=== PATIENT | female | born 1955 | race Caucasian/White ===

== ENCOUNTER 2018-05-23 15:58 | Emergency (ER) | payer OTHER ==
[2018-05-23] MEDS ORDERED: MECLIZINE HCL 12.5 MG TAB ONE (16:39)
[2018-05-23] MEDS ORDERED: FOLIC ACID 1 MG TABLET ONE (16:40)
[2018-05-23] MEDS ORDERED: ONDANSETRON 4 MG/2 ML VIAL ONE (16:40)
[2018-05-23 16:47] LABS: Urine Blood 1+ (NEG); Urine Glucose NEGATIVE (NEG); Urine Protein NEGATIVE (NEG)
[2018-05-23 17:00] LABS: Absolute Lymphocytes (CBC) 2.6 K/uL (0.7-4.9); Absolute Monocytes 0.5 K/uL (0.1-1.3); Absolute Neutrophil 4.5 K/uL (1.8-8.0); Basophils % 1.5 % (0-1.3); Eosinophils % 2.4 % (0-4.4); Hematocrit 49.7 % (36.0-45.0); MCH 29.5 pg (27.0-35.0); MCV 89.8 fL (80-100); MPV 9.1 fL (7.6-11.3); Monocytes % 5.9 % (3.3-12.3); RBC Red Blood Cell Count 5.53 M/uL (3.86-4.86)
[2018-05-23 17:08] LABS: Protime INR 0.92
--- NOTE | 2018-05-23 17:12 | RAD REPORT ---
EXAM DESCRIPTION: RAD - Chest Single View - 05/23/2018 4:54 pm CLINICAL HISTORY: Cough, weakness, dizziness COMPARISON: None. TECHNIQUE: AP portable chest image was obtained 1652 hours . FINDINGS: Lungs are clear. Heart and vasculature are normal. No measurable pleural effusion and no p neumothorax. No gross bony abnormality seen. No acute aortic findings suspected. IMPRESSION: No acute cardiopulmonary process.
[2018-05-23 17:21] LABS: ALT/SGPT 22 U/L (12-78); AST/SGOT 16 U/L (15-37); Alkaline Phosphatase 74 U/L (45-117); BUN Blood Urea Nitrogen 12 mg/dL (7-18); Bicarbonate 30 mmol/L (21-32); Bilirubin Direct 0.2 mg/dL (0-0.2); Bilirubin Total 0.4 mg/dL (0.2-1.0); Glucose Level 101 mg/dL (74-106); Magnesium 2.4 mg/dL (1.8-2.4); NT PRO-BNP 33 pg/mL (<125); Potassium 3.7 mmol/L (3.5-5.1); Protein, Total 7.7 g/dL (6.4-8.2); Sodium Level 142 mmol/L (136-145); Troponin (Emerg Dept Use Only) < 0.02 ng/mL (0.0-0.045)
[2018-05-23] MEDS ORDERED: ASPIRIN 81 MG CHEWABLE TABLET ONE (17:26)
--- NOTE | 2018-05-23 17:49 | RAD REPORT ---
EXAM DESCRIPTION: USCarotid Artery Gyeekrfue78/3/2018 5:29 pm CLINICAL HISTORY: Syncope COMPARISON: None FINDINGS: The velocity of the right internal carotid artery equals 70 cm/sec. The right ICA/CCA rati o 1.3 The velocity of the left internal carotid artery equals 64 cm/sec. The left ICA/CCA ratio 1.1 Minimal plaque is present within the carotid arteries. The vertebral arteries demonstrate antegrade flow IMPRESSION: Minimal plaque within the carotid arteries without evidence of a hemodynamically signifi cant stenosis
--- NOTE | 2018-05-23 18:24 | RAD REPORT ---
EXAM DESCRIPTION: MRI - Brain Wo Cont - 05/23/2018 6:02 pm CLINICAL HISTORY: Dizziness COMPARISON: 05/22/2018 TECHNIQUE: Axial, sagittal, and coronal magnetic images of the brain were obtained. Contrast was not requested FINDINGS: Mild patchy signal is present within the brainstem, basal ganglia, periventricular deep wh ite matter probably secondary to ischemic changes secondary to small vessel disease. Diffusion-weighted/ADC mapping does not reveal evidence of acute infarction. The ventricles are normal caliber. An extra-axial fluid collection is not present The sinuses and mastoids are clear. IMPRESSION: No acute abnormality is displayed
--- NOTE | 2018-05-23 18:37 | ER ---
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 Transition of care: patient was not received from another setting of care. Onset of symptoms was May 23, 2018. Risk Assessment: Do you want to hurt yourself or someone else? Patient reports no desire to harm self or others. Initial Sepsis Screen: Does the patient meet any 2 criteria? No. Patient's initial sepsis screen is negative. Does the patient have a suspected source of infection? No. Patient's initial sepsis screen is negative. Care prior to arrival: None. 16:02 Method Of Arrival: Ambulatory 16:02 Acuity: ESTEPHANIA 3 hj Triage Assessment: 16:07 Headache History: Denies prior headaches. General: Appears in no apparent distress. hj uncomfortable, Behavior is calm, cooperative, appropriate for age. Pain: Complains of pain in head Pain currently is 1 out of 10 on a pain scale. Pain began 1 day ago. Also complains of. Neuro: Level of Consciousness is awake, alert, obeys commands, Oriented to person, place, time, situation, Appropriate for age. Historical: - Allergies: 16:06 TETRACYCLINES; hj - Home Meds: 16:06 Diovan 12.5 mg Oral tab once daily [Active]; pantoprazole 40 mg oral TbEC 1 tab once hj daily [Active]; aspirin 81 mg Oral TbEC 1 tab once daily [Active]; Flonase 50 mcg/actuation Nasal spsn 1 spray 2 times per day [Active]; - PMHx: 16:06 Hypertension; hj - PSHx: 16:06 Heart stents; Hysterectomy; Knee surgery; hj - Immunization history:: Adult Immunizations up to date. - Social history:: Smoking status: Patient uses tobacco products, smokes one pack cigarettes per day. Patient uses alcohol, weekly. - Ebola Screening: : Patient negative for fever greater than or equal to 101.5 degrees Fahrenheit, and additional compatible Ebola Virus Disease symptoms Patient denies exposure to infectious person Patient denies travel to an Ebola-affected area in the 21 days before illness onset. - Family history:: not pertinent. Screenin:06 Abuse screen: Denies threats or abuse. Denies injuries from another. Nutritional hj screening: No deficits noted. Tuberculosis screening: No symptoms or risk factors identified. Fall Risk None identified. Assessment: 16:40 General: Appears in no apparent distress. comfortable, slender, well groomed, well tl3 developed, well nourished, Behavior is calm, cooperative, appropriate for age. Pain: Denies pain. Neuro: Level of Consciousness is awake, alert, obeys commands, Oriented to person, place, time, situation, Appropriate for age. Neuro: Reports dizziness, since Monday, intermittently dizzy, seen by PCP yesterday and CT and Blood results were negative. Cardiovascular: Patient's skin is warm and dry. Respiratory: Airway is patent Respiratory effort is even, unlabored, Respiratory pattern is regular, symmetrical. GI: No signs and/or symptoms were reported involving the gastrointestinal system. : No signs and/or symptoms were reported regarding the genitourinary system. EENT: No signs and/or symptoms were reported regarding the EENT system. Derm: No signs and/or symptoms reported regarding the dermatologic system. Musculoskeletal: No signs and/or symptoms reported regarding the musculoskeletal system. 18:09 Reassessment: Patient appears in no apparent distress at this time. No changes from tl3 previously documented assessment. Patient and/or family updated on plan of care and expected duration. Pain level reassessed. Patient is alert, oriented x 3, equal unlabored respirations, skin warm/dry/pink. pt returned from MRI. 18:57 Reassessment: Patient appears in no apparent distress at this time. No changes from tl3 previously documented assessment. Patient and/or family updated on plan of care and expected duration. Pain level reassessed. Patient is alert, oriented x 3, equal unlabored respirations, skin warm/dry/pink. Vital Signs: 16:08 BP 122 / 79; Pulse 76; Resp 18; Temp 97.5(TE); Pulse Ox 98% on R/A; Weight 65.77 kg; hj Height 5 ft. 1 in. (154.94 cm); Pain 2/10; 18:09 BP 142 / 95; Pulse 64; Resp 18; Pulse Ox 99% on R/A; tl3 18:57 BP 121 / 80; Pulse 71; Resp 16; Pulse Ox 98% on R/A; tl3 16:08 Body Mass Index 27.40 (65.77 kg, 154.94 cm) ED Course: 16:02 Patient arrived in ED. mr 16:04 Triage completed. hj 16:07 Arm band placed on left wrist. hj 16:08 Patient has correct armband on for positive identification. Placed in gown. Bed in low hj position. Call light in reach. Side rails up X 1. 16:18 Rishabh Hoang MD is Attending Physician. [facility] 16:22 Isabel Bergman RN is Primary Nurse. tl3 16:50 XRAY Chest (1 view) Sent. tl3 16:53 X-ray completed. Portable x-ray completed in exam room. Patient tolerated procedure az well. 16:55 XRAY Chest (1 view) In Process Unspecified. EDMS 16:56 No provider procedures requiring assistance completed. Inserted saline lock: 20 gauge tl3 in left antecubital area, using aseptic technique. Blood collected. 17:17 EKG done, by welding technician. reviewed by Rishabh Hoang MD. sm3 17:29 Carotid Artery Bilateral In Process Unspecified. EDMS 17:53 Patient moved to MRI via wheelchair. em2 17:57 Brain Wo Cont In Process Unspecified. EDMS 18:01 MRI completed. Patient tolerated well. Patient moved back from MRI. em2 18:09 Door closed. Lights dimmed. Warm blanket given. tl3 18:36 Remigio Khalil MD is Referral Physician. sherlyn 18:57 IV discontinued, intact, bleeding controlled, No redness/swelling at site. Pressure tl3 dressing applied. Administered Medications: 16:48 Drug: Meclizine 50 mg Route: PO; tl3 18:11 Follow up: Response: No adverse reaction tl3 16:48 Drug: Zofran 4 mg Route: IVP; Infused Over: 2 mins; Site: left wrist; tl3 18:11 Follow up: Response: No adverse reaction tl3 16:51 Drug: foLIC Acid 1 mg Route: IVPB; Site: left wrist; tl3 18:11 Follow up: Response: No adverse reaction tl3 18:59 Follow up: IV Status: Completed infusion tl3 17:32 Drug: Aspirin 81 mg Route: PO; tl3 18:11 Follow up: Response: No adverse reaction tl3 Outcome: 18:36 Discharge ordered by MD. plata 18:57 Discharged to home ambulatory. tl3 18:57 Condition: stable 18:57 Discharge instructions given to patient, Instructed on discharge instructions, follow up and referral plans. medication usage, Demonstrated understanding of instructions, follow-up care, medications, Prescriptions given X 2. 19:00 Patient left the ED. tl3 Signatures: Dispatcher [employer] EDMS Rishabh Hoang MD MD cha Rivera, Catrina mr Bhakta Kendrick em2 Jonah Currie RN RN hj Lowrey, Tammy, RN RN 3 Karina Bhakta 3 Gissel Mckinley ne Corrections: (The following items were deleted from the chart) 16:09 16:08 Pulse 76bpm; Resp 18bpm; Pulse Ox 98% RA; Temp 97.5F Temporal; 65.77 kg; Height 5 hj ft. 1 in.; BMI: 27.4; Pain 2/10; hj
--- NOTE | 2018-05-23 18:39 | EDPHYS ---
Physician Documentation [facility] Name: Denice Gastelum Age: 62 yrs Sex: Female : 1955 Arrival Date: 05/23/2018 Time: 16:02 Bed 25 Private MD: ED Physician Rishabh Hoang HPI: 05/23 16:34 This 62 yrs old Female presents to ER via Ambulatory with complaints of sherlyn Dizziness, Headache. 16:35 This 62 yrs old Female presents to ER via Ambulatory with complaints of sherlyn Dizziness, Headache. 16:34 The patient presents with dizziness, sense of spinning. sherlyn Historical: - Allergies: 16:06 TETRACYCLINES; hj - Home Meds: 16:06 Diovan 12.5 mg Oral tab once daily [Active]; pantoprazole 40 mg oral TbEC 1 tab once hj daily [Active]; aspirin 81 mg Oral TbEC 1 tab once daily [Active]; Flonase 50 mcg/actuation Nasal spsn 1 spray 2 times per day [Active]; - PMHx: 16:06 Hypertension; hj - PSHx: 16:06 Heart stents; Hysterectomy; Knee surgery; hj - Immunization history:: Adult Immunizations up to date. - Social history:: Smoking status: Patient uses tobacco products, smokes one pack cigarettes per day. Patient uses alcohol, weekly. - Ebola Screening: : Patient negative for fever greater than or equal to 101.5 degrees Fahrenheit, and additional compatible Ebola Virus Disease symptoms Patient denies exposure to infectious person Patient denies travel to an Ebola-affected area in the 21 days before illness onset. - Family history:: not pertinent. ROS: 16:35 Constitutional: Negative for fever, chills, and weight loss, Eyes: Negative for injury, sherlyn pain, redness, and discharge, ENT: Negative for injury, pain, and discharge, Neck: Negative for injury, pain, and swelling, Cardiovascular: Negative for chest pain, palpitations, and edema, Respiratory: Negative for shortness of breath, cough, wheezing, and pleuritic chest pain, Abdomen/GI: Negative for abdominal pain, nausea, vomiting, diarrhea, and constipation, Back: Negative for injury and pain, : Negative for injury, bleeding, discharge, and swelling, MS/Extremity: Negative for injury and deformity, Skin: Negative for injury, rash, and discoloration, Psych: Negative for depression, anxiety, suicide ideation, homicidal ideation, and hallucinations, Allergy/Immunology: Negative for hives, rash, and allergies, Endocrine: Negative for neck swelling, polydipsia, polyuria, polyphagia, and marked weight changes, Hematologic/Lymphatic: Negative for swollen nodes, abnormal bleeding, and unusual bruising. 16:35 Neuro: Positive for dizziness, headache. Exam: 16:35 Constitutional: This is a well developed, well nourished patient who is awake, alert, sherlyn and in no acute distress. Head/Face: Normocephalic, atraumatic. ENT: Nares patent. No nasal discharge, no septal abnormalities noted. Tympanic membranes are normal and external auditory canals are clear. Oropharynx with no redness, swelling, or masses, exudates, or evidence of obstruction, uvula midline. Mucous membranes moist. Neck: Trachea midline, no thyromegaly or masses palpated, and no cervical lymphadenopathy. Supple, full range of motion without nuchal rigidity, or vertebral point tenderness. No Meningismus. Chest/axilla: Normal chest wall appearance and motion. Nontender with no deformity. No lesions are appreciated. Cardiovascular: Regular rate and rhythm with a normal S1 and S2. No gallops, murmurs, or rubs. Normal PMI, no JVD. No pulse deficits. Respiratory: Lungs have equal breath sounds bilaterally, clear to auscultation and percussion. No rales, rhonchi or wheezes noted. No increased work of breathing, no retractions or nasal flaring. Abdomen/GI: Soft, non-tender, with normal bowel sounds. No distension or tympany. No guarding or rebound. No evidence of tenderness throughout. Back: No spinal tenderness. No costovertebral tenderness. Full range of motion. Female : Normal external genitalia. Skin: Warm, dry with normal turgor. Normal color with no rashes, no lesions, and no evidence of cellulitis. MS/ Extremity: Pulses equal, no cyanosis. Neurovascular intact. Full, normal range of motion. Neuro: Awake and alert, GCS 15, oriented to person, place, time, and situation. Cranial nerves II-XII grossly intact. Motor strength 5/5 in all extremities. Sensory grossly intact. Cerebellar exam normal. Normal gait. Psych: Awake, alert, with orientation to person, place and time. Behavior, mood, and affect are within normal limits. 16:35 Eyes: Nystagmus: nystagmus with fast component noted, bilaterally. Vital Signs: 16:08 BP 122 / 79; Pulse 76; Resp 18; Temp 97.5(TE); Pulse Ox 98% on R/A; Weight 65.77 kg; hj Height 5 ft. 1 in. (154.94 cm); Pain 2/10; 18:09 BP 142 / 95; Pulse 64; Resp 18; Pulse Ox 99% on R/A; tl3 18:57 BP 121 / 80; Pulse 71; Resp 16; Pulse Ox 98% on R/A; tl3 16:08 Body Mass Index 27.40 (65.77 kg, 154.94 cm) hj MDM: 16:18 Patient medically screened. [facility] 16:36 Data reviewed: vital signs, nurses notes, lab test result(s), EKG, radiologic studies, [facility] CT scan, MRI, plain films, ultrasound. 05/23 16:30 Order name: Basic Metabolic Panel; Complete Time: 17:23 [facility] 05/23 16:30 Order name: CBC with Diff; Complete Time: 17:23 [facility] 05/23 16:30 Order name: LFT's; Complete Time: 17:23 [facility] 05/23 16:30 Order name: Magnesium; Complete Time: 17:23 [facility] 05/23 16:30 Order name: NT PRO-BNP; Complete Time: 17:23 [facility] 05/23 16:30 Order name: PT-INR; Complete Time: 17:23 [facility] 05/23 16:30 Order name: Troponin (emerg Dept Use Only); Complete Time: 17:23 [facility] 05/23 16:30 Order name: XRAY Chest (1 view); Complete Time: 17:23 [facility] 05/23 16:30 Order name: US Carotid Artery Bilateral; Complete Time: 18:35 sherlyn 05/23 16:30 Order name: Urine Culture [facility] 05/23 16:32 Order name: Urine Dipstick--Ancillary (enter results); Complete Time: 17:09 05/23 17:52 Order name: Brain Wo Cont; Complete Time: 18:35 EDMS 05/23 16:30 Order name: EKG; Complete Time: 16:31 sherlyn 05/23 16:30 Order name: Cardiac monitoring; Complete Time: 16:50 sherlyn 05/23 16:30 Order name: EKG - Nurse/Tech; Complete Time: 16:50 [facility] 05/23 16:30 Order name: IV Saline Lock; Complete Time: 16:50 [facility] 05/23 16:30 Order name: Labs collected and sent; Complete Time: 16:50 [facility] 05/23 16:30 Order name: O2 Per Protocol; Complete Time: 16:50 [facility] 05/23 16:30 Order name: O2 Sat Monitoring; Complete Time: 16:50 [facility] Administered Medications: 16:48 Drug: Meclizine 50 mg Route: PO; tl3 18:11 Follow up: Response: No adverse reaction tl3 16:48 Drug: Zofran 4 mg Route: IVP; Infused Over: 2 mins; Site: left wrist; tl3 18:11 Follow up: Response: No adverse reaction tl3 16:51 Drug: foLIC Acid 1 mg Route: IVPB; Site: left wrist; tl3 18:11 Follow up: Response: No adverse reaction tl3 18:59 Follow up: IV Status: Completed infusion tl3 17:32 Drug: Aspirin 81 mg Route: PO; tl3 18:11 Follow up: Response: No adverse reaction tl3 Disposition: 05/23/18 18:36 Discharged to Home. 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 - Condition is Stable. - Discharge Instructions: Benign Positional Vertigo, Dizziness, Hypertension, Steps to Quit Smoking, Smoking Hazards, Stroke Prevention, Hypertension, [id number], How to Take Your Blood Pressure, [id number], Aspirin and Your Heart, Dizziness, [id number], Managing Your Hypertension. - Prescriptions for Meclizine 25 mg Oral Tablet - take 1 tablet by ORAL route every 8 hours As needed; 30 tablet. Zofran 4 mg Oral Tablet - take 1 tablet by ORAL route every 12 hours As needed; 20 tablet. - Medication Reconciliation Form, Thank You Letter, Antibiotic Education, Prescription Opioid Use form. - Follow up: Private Physician; When: 2 - 3 days; Reason: Recheck today's complaints, Continuance of care, Re-evaluation by your physician. Follow up: Remigio Khalil; When: 2 - 3 days; Reason: Recheck today's complaints, Re-evaluation by your physician. - Problem is new. - Symptoms have improved. Signatures: Dispatcher [employer] [facility] Rishabh Hoang MD MD cha Joaquin, Henry RN RN Isabel Portillo RN RN tl3 Corrections: (The following items were deleted from the chart) 17:52 16:31 MR STROKE PROTOCOL+MRI.RAD.BRZ ordered. [facility] 19:00 18:36 05/23/2018 18:36 Discharged to Home. 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 Condition is Stable. Discharge Instructions: Benign Positional Vertigo, Dizziness, Hypertension, Steps to Quit Smoking, Smoking Hazards, Stroke Prevention, Hypertension, [id number], How to Take Your Blood Pressure, Zgtt-[id number], Aspirin and Your Heart, Dizziness, Khox-hl-Uecm, Managing Your Hypertension. Prescriptions for Meclizine 25 mg Oral Tablet - take 1 tablet by ORAL route every 8 hours As needed; 30 tablet, Zofran 4 mg Oral Tablet - take 1 tablet by ORAL route every 12 hours As needed; 20 tablet. and Forms are Medication Reconciliation Form, Thank You Letter, Antibiotic Education, Prescription Opioid Use. Follow up: Private Physician; When: 2 - 3 days; Reason: Recheck today's complaints, Continuance of care, Re-evaluation by your physician. Follow up: Remigio Khalil; When: 2 - 3 days; Reason: Recheck today's complaints, Re-evaluation by your physician. Problem is new. Symptoms have improved. sherlyn
[2018-05-23 19:25] VITALS: TEMP 98.5
[2018-05-23 19:26] VITALS: BP 133/87; O2SAT 99
--- NOTE | 2018-05-23 23:08 | EKG ---
Test Date: 2018-05-23 Test Time: 17:10:29 Plastic Surgery Manager: EMILIO MEASUREMENT RESULTS: Intervals: Rate: 65 DC: 140 QRSD: 82 QT: 378 QTc: 393 [place]: P: 69 DC: 140 QRS: 62 T: 59 INTERPRETIVE STATEMENTS: Normal sinus rhythm Nonspecific T wave abnormality Abnormal ECG Compared to ECG 12/26/1996 08:51:00 T-wave abnormality now present Electronically Signed On 05-23-18 23:07:30 CDT by Dashawn Lou
== END 2018-05-23 19:00 | disposition home or self-care (01) ==
LOC: ER 15:58
DX: H82.9 Vertiginous syndromes in diseases classified elsewhere, unspecified ear (principal); I10 Essential (primary) hypertension; Z72.0 Tobacco use; Z71.6 Tobacco abuse counseling; Z95.828 Presence of other vascular implants and grafts; Z79.82 Long term (current) use of aspirin; Z88.1 Allergy status to other antibiotic agents
CPT/HCPCS: 36415; 70551; 71045; 80048; 80076; 81003; 83735; 83880; 84484; 85025; 85610; 87086; 87088; 93005; 93880; J2405

== ENCOUNTER 2018-06-01 22:29 | Emergency (ER) | payer OTHER ==
--- NOTE | 2018-06-02 00:17 | ER ---
Nurse's Notes [facility] Name: Denice Gastelum Age: 62 yrs Sex: Female : 1955 Arrival Date: 06/01/2018 Time: 22:31 Bed 2 Private MD: Diagnosis: Vagal Syncope Presentation: 06/01 22:31 Presenting complaint: Patient states: "pt was at a bar with friends when she got very jd3 dizzy and nauseous. pt reports drinking a few drinks. when we arrived on scene pt's blood pressure was 78/50, but by the time we got her here her blood pressure was back up at her normal level.". Transition of care: patient was not received from another setting of care. Onset of symptoms was June 01, 2018. Risk Assessment: Do you want to hurt yourself or someone else? Patient reports no desire to harm self or others. Initial Sepsis Screen: Does the patient meet any 2 criteria? No. Patient's initial sepsis screen is negative. Does the patient have a suspected source of infection? No. Patient's initial sepsis screen is negative. Care prior to arrival: Glucose check: 108. 22:31 Method Of Arrival: EMS: [facility] jd3 22:31 Acuity: ESTEPHANIA 3 jd3 Historical: - Allergies: 22:38 TETRACYCLINES; jd3 - Home Meds: 22:38 aspirin 81 mg Oral TbEC 1 tab once daily [Active]; Diovan 12.5 mg Oral tab once daily jd3 [Active]; Flonase 50 mcg/actuation Nasal spsn 1 spray 2 times per day [Active]; pantoprazole 40 mg Oral TbEC 1 tab once daily [Active]; 22:39 Vitamin D Oral [Active]; jd3 - PMHx: 22:38 Hypertension; cervical cancer; jd3 - PSHx: 22:38 Hysterectomy; Heart stents; jd3 22:39 Knee surgery; jd3 - Immunization history:: Pneumococcal vaccine is not up to date, Flu vaccine is not up to date. - Social history:: Smoking status: Patient uses tobacco products. - Ebola Screening: : Patient negative for fever greater than or equal to 101.5 degrees Fahrenheit, and additional compatible Ebola Virus Disease symptoms. Screenin:45 Abuse screen: Denies threats or abuse. Nutritional screening: No deficits noted. jd3 Tuberculosis screening: No symptoms or risk factors identified. Fall Risk Ambulatory Aid- None/Bed Rest/Nurse Assist (0 pts). Gait- Normal/Bed Rest/Wheelchair (0 pts) Mental Status- Oriented to own ability (0 pts). Total Hernandez Fall Scale indicates No Risk (0-24 pts). Assessment: 22:40 Reassessment: Patient states feeling better. General: Appears in no apparent distress. jd3 comfortable, Behavior is calm, cooperative, appropriate for age. Pain: Denies pain. Neuro: Level of Consciousness is awake, alert, obeys commands, Oriented to person, place, time, situation, Appropriate for age Moves all extremities. Full function Gait is steady, Speech is normal, Facial symmetry appears normal, Pupils are PERRLA, denies vertigo and nausea at this time. reports symptoms have decreased prior to arrival.. Denies dizziness at this time.. Cardiovascular: Denies chest pain, Capillary refill < 3 seconds Patient's skin is warm and dry. Respiratory: Airway is patent Respiratory effort is even, unlabored, Respiratory pattern is regular, symmetrical, Denies shortness of breath. GI: Abdomen is round non-distended, Patient currently denies nausea or vomiting at this time. : No signs and/or symptoms were reported regarding the genitourinary system. EENT: No signs and/or symptoms were reported regarding the EENT system. Derm: Skin is intact, Skin is dry, Skin is normal, Skin temperature is warm. Musculoskeletal: Circulation, motion, and sensation intact. Range of motion: intact in all extremities. 23:19 Reassessment: Patient appears in no apparent distress at this time. Patient and/or jd3 family updated on plan of care and expected duration. Pain level reassessed. Patient is alert, oriented x 3, equal unlabored respirations, skin warm/dry/pink. awaiting provider to see pt. 06/02 00:07 Reassessment: Patient appears in no apparent distress at this time. Patient and/or jd3 family updated on plan of care and expected duration. Pain level reassessed. Patient is alert, oriented x 3, equal unlabored respirations, skin warm/dry/pink. Patient denies pain at this time. 00:14 Reassessment: pt ambulated with even and steady gait to front nurses station and back j to room . pt denied any vertigo or unsteady feeling while walking. Vital Signs: 06/01 22:39 BP 95 / 70; Pulse 60; Resp 16 S; Temp 97.4(O); Pulse Ox 97% on R/A; Weight 65.77 kg jd3 (R); Height 5 ft. 1 in. (154.94 cm) (R); Pain 0/10; 23:19 BP 107 / 85; Pulse 62; Resp 16 S; Pulse Ox 99% on R/A; jd3 06/02 00:05 BP 116 / 77 Supine; Pulse 64; Resp 17 S; Pulse Ox 99% on R/A; jd3 00:05 BP 117 / 74 Standing; Pulse 59; Resp 16 S; Pulse Ox 99% on R/A; jd3 00:33 BP 116 / 77; Pulse 69; Resp 16; Pulse Ox 99% on R/A; Pain 0/10; ak1 06/01 22:39 Body Mass Index 27.40 (65.77 kg, 154.94 cm) jd3 ED Course: 06/01 22:31 Patient arrived in ED. jd3 22:36 Triage completed. jd3 22:40 Arm band placed on. jd3 22:45 Patient has correct armband on for positive identification. Bed in low position. Call j light in reach. Side rails up X 1. 22:58 Pantera Rodgers RN is Primary Nurse. jd3 23:24 Adolfo Tadeo MD is Attending Physician. ri 06/02 00:16 Remigio Khalil MD is Referral Physician. ri 00:33 No provider procedures requiring assistance completed. Patient did not have IV access ak1 during this emergency room visit. Administered Medications: No medications were administered Outcome: 00:16 Discharge ordered by . ri 00:34 Discharged to home ambulatory, with family, pt with steady gait at time of discharge. ak1 00:34 Condition: stable 00:34 Discharge instructions given to patient, family, Instructed on discharge instructions, follow up and referral plans. Demonstrated understanding of instructions, follow-up care. 00:34 Patient left the ED. ak1 Signatures: Luna Blake RN RN ak1 Adolfo Tadeo MD MD wa Davies, Jonathon, RN RN jd3 Corrections: (The following items were deleted from the chart) 06/01 22:59 22:59 Reassessment: Patient appears in no apparent distress at this time. No changes jd3 from previously documented assessment. Patient and/or family updated on plan of care and expected duration. Pain level reassessed. Patient is alert, oriented x 3, equal unlabored respirations, skin warm/dry/pink. jd3 06/02 00:06 00:05 BP 117 / 74; Pulse 59bpm; Resp 16bpm; Spontaneous; Pulse Ox 99% RA; jd3 jd3 00:06 00:05 BP 116 / 77; Pulse 64bpm; Resp 17bpm; Spontaneous; Pulse Ox 99% RA; jd3 jd3
--- NOTE | 2018-06-02 00:17 | EDPHYS ---
Physician Documentation [facility] Name: Denice Gastelum Age: 62 yrs Sex: Female : 1955 Arrival Date: 06/01/2018 Time: 22:31 Bed 2 Private MD: ED Physician Adolfo Tadeo HPI: 06/02 00:55 This 62 yrs old Female presents to ER via EMS with complaints of syncope. wa 00:55 The patient has experienced syncope, collapsed. Onset: The symptoms/episode wa began/occurred just prior to arrival. Duration: This was a single episode, that lasted an unknown period of time. Context: the episode(s) was witnessed, by a bystander, occurred at a bar or nightclub, occurred while the patient was sitting, Just prior to the episode the patient experienced dizziness, nausea, vomiting, per pt, has been having episodes of room spinning x 2 weeks. recently seen here and had a negative MRI and carotid doppler studies. states usually occurs associated with bitemporal BINGHAM, then proceed to dizziness w/ room spinning and unsteady on the feet as a result. today had had 2 ETOH drinks at a high school [employer]union [employer] when she became dizzy and passed out. Vomited. became clammy. per EMS, noted with low BP at their arrival. states feels completely better now and symptoms have resolved. Associated injury: The patient did not suffer any apparent associated injury. Associated signs and symptoms: Pertinent positives: diaphoresis, dizziness, Pertinent negatives: abdominal pain, agitation, ataxia, blurred vision, chest pain, confusion. Current symptoms: Currently, the patient is not experiencing any symptoms. The patient has experienced similar episodes in the past, several times. The patient has been recently seen by a physician: worked up here in ED as noted above. Historical: - Allergies: 06/01 22:38 TETRACYCLINES; jd3 - Home Meds: 22:38 aspirin 81 mg Oral TbEC 1 tab once daily [Active]; Diovan 12.5 mg Oral tab once daily jd3 [Active]; Flonase 50 mcg/actuation Nasal spsn 1 spray 2 times per day [Active]; pantoprazole 40 mg Oral TbEC 1 tab once daily [Active]; 22:39 Vitamin D Oral [Active]; jd3 - PMHx: 22:38 Hypertension; cervical cancer; jd3 - PSHx: 22:38 Hysterectomy; Heart stents; jd3 22:39 Knee surgery; jd3 - Immunization history:: Pneumococcal vaccine is not up to date, Flu vaccine is not up to date. - Social history:: Smoking status: Patient uses tobacco products. - Ebola Screening: : Patient negative for fever greater than or equal to 101.5 degrees Fahrenheit, and additional compatible Ebola Virus Disease symptoms. ROS: 06/02 01:02 Constitutional: Negative for fever, chills, and weight loss, Eyes: Negative for injury, wa pain, redness, and discharge, ENT: Negative for injury, pain, and discharge, Neck: Negative for injury, pain, and swelling, Cardiovascular: Negative for chest pain, palpitations, and edema, Respiratory: Negative for shortness of breath, cough, wheezing, and pleuritic chest pain, Abdomen/GI: Negative for abdominal pain, nausea, vomiting, diarrhea, and constipation, Back: Negative for injury and pain, : Negative for injury, bleeding, discharge, and swelling, MS/Extremity: Negative for injury and deformity, Skin: Negative for injury, rash, and discoloration, Psych: Negative for depression, anxiety, suicide ideation, homicidal ideation, and hallucinations. Neuro: Positive for dizziness, syncope, Negative for tinnitus, visual changes, weakness. All other systems are negative. Exam: 01:03 Constitutional: This is a well developed, well nourished patient who is awake, alert, wa and in no acute distress. Head/Face: Normocephalic, atraumatic. Eyes: Pupils equal round and reactive to light, extra-ocular motions intact. Lids and lashes normal. Conjunctiva and sclera are non-icteric and not injected. Cornea within normal limits. Periorbital areas with no swelling, redness, or edema. ENT: Nares patent. No nasal discharge, no septal abnormalities noted. Tympanic membranes are normal and external auditory canals are clear. Oropharynx with no redness, swelling, or masses, exudates, or evidence of obstruction, uvula midline. Mucous membranes moist. Neck: Trachea midline, no thyromegaly or masses palpated, and no cervical lymphadenopathy. Supple, full range of motion without nuchal rigidity, or vertebral point tenderness. No Meningismus. Chest/axilla: Normal chest wall appearance and motion. Nontender with no deformity. No lesions are appreciated. Cardiovascular: Regular rate and rhythm with a normal S1 and S2. No gallops, murmurs, or rubs. Normal PMI, no JVD. No pulse deficits. Respiratory: Lungs have equal breath sounds bilaterally, clear to auscultation and percussion. No rales, rhonchi or wheezes noted. No increased work of breathing, no retractions or nasal flaring. Abdomen/GI: Soft, non-tender, with normal bowel sounds. No distension or tympany. No guarding or rebound. No evidence of tenderness throughout. Back: No spinal tenderness. No costovertebral tenderness. Full range of motion. Skin: Warm, dry with normal turgor. Normal color with no rashes, no lesions, and no evidence of cellulitis. MS/ Extremity: Pulses equal, no cyanosis. Neurovascular intact. Full, normal range of motion. Psych: Awake, alert, with orientation to person, place and time. Behavior, mood, and affect are within normal limits. 01:03 Neuro: Orientation: is normal, Mentation: is normal, Memory: is normal, Cranial nerves: grossly normal, Cerebellar function: normal finger to nose testing, heel to smith testing is normal, able to perform alternating rapid hand movements, Motor: is normal. Vital Signs: 06/01 22:39 BP 95 / 70; Pulse 60; Resp 16 S; Temp 97.4(O); Pulse Ox 97% on R/A; Weight 65.77 kg jd3 (R); Height 5 ft. 1 in. (154.94 cm) (R); Pain 0/10; 23:19 BP 107 / 85; Pulse 62; Resp 16 S; Pulse Ox 99% on R/A; jd3 06/02 00:05 BP 116 / 77 Supine; Pulse 64; Resp 17 S; Pulse Ox 99% on R/A; jd3 00:05 BP 117 / 74 Standing; Pulse 59; Resp 16 S; Pulse Ox 99% on R/A; jd3 00:33 BP 116 / 77; Pulse 69; Resp 16; Pulse Ox 99% on R/A; Pain 0/10; ak1 06/01 22:39 Body Mass Index 27.40 (65.77 kg, 154.94 cm) [facility] MDM: 06/01 23:24 Patient medically screened. sd 06/02 01:04 Differential Diagnosis: cardiac arrhythmia, idiopathic syncope, vasovagal episode, will wa check orthostasis. will monitor. will check EKG. Data reviewed: vital signs, nurses notes. Test interpretation: by ED physician or midlevel provider: EKG: HR 59. sinus lucy. negative orthostasis. Special discussion: pt recently worked up with MRI, labs, and EKG. has appt to f/u with neurology. will d/c with close f/u. 06/01 23:47 Order name: EKG; Complete Time: 23:48 jd3 06/01 23:43 Order name: Cardiac monitoring; Complete Time: 00:05 sd 06/01 23:43 Order name: Orthostatics; Complete Time: 00:05 sd 06/01 23:43 Order name: EKG - Nurse/Tech; Complete Time: 00:05 sd Administered Medications: No medications were administered Disposition: 06/02/18 00:16 Discharged to Home. Impression: Vagal Syncope. - Condition is Stable. - Discharge Instructions: Vasovagal Syncope, Adult. - Medication Reconciliation Form, Thank You Letter, Antibiotic Education, Prescription Opioid Use form. - Follow up: Remigio Khalil MD; When: 2 - 3 days; Reason: Recheck today's complaints. - Problem is new. - Symptoms have improved. - Notes: follow up with the neurologist as discussed. do not drink alcohol until you have been evaluated and cleared and your symptoms have completely resolved. Return immediately for any worsening concerns you may have Signatures: Luna Blake RN RN ak1 Adolfo Tadeo MD MD sd Pantera Rodgers RN RN jd3 Corrections: (The following items were deleted from the chart) 00:34 00:16 06/02/2018 00:16 Discharged to Home. Impression: Vagal Syncope. Condition is ak1 Stable. Forms are Medication Reconciliation Form, Thank You Letter, Antibiotic Education, Prescription Opioid Use. Follow up: Remigio Khalil; When: 2 - 3 days; Reason: Recheck today's complaints. Problem is new. Symptoms have improved. wa
[2018-06-02 00:47] VITALS: TEMP 97.4
[2018-06-02 00:48] VITALS: O2SAT 99
[2018-06-02 00:51] VITALS: BP 116/77
--- NOTE | 2018-06-04 10:15 | EKG ---
Test Date: 2018-06-01 Test Time: 23:58:35 Svp: ENDER MEASUREMENT RESULTS: Intervals: Rate: 59 DE: 146 QRSD: 82 QT: 408 QTc: 403 [place]: P: 73 DE: 146 QRS: 68 T: 70 INTERPRETIVE STATEMENTS: Sinus bradycardia T wave abnormality, non specific Abnormal ECG Compared to ECG 05/23/2018 17:10:29 Possible ischemia now present Sinus rhythm no longer present T-wave abnormality still present Electronically Signed On 06-04-18 10:14:36 CDT by Dashawn Lou
== END 2018-06-02 00:34 | disposition home or self-care (01) ==
LOC: ER 22:29
DX: R55 Syncope and collapse (principal); I10 Essential (primary) hypertension; Z88.3 Allergy status to other anti-infective agents
CPT/HCPCS: 93005; 99283

== ENCOUNTER 2019-10-05 08:55 | Inpatient (IN) | payer OTHER ==
[2019-10-05] MEDS ORDERED: ASPIRIN 81 MG CHEWABLE TABLET ONE (09:41)
[2019-10-05 09:43] LABS: Absolute Lymphocytes (CBC) 1.9 K/uL (0.7-4.9); Basophils % 1.3 % (0-1.3); Hematocrit 45.7 % (36.0-45.0); Lymphocytes % 29.6 % (15.3-44.8); MPV 9.2 fL (7.6-11.3); RBC Red Blood Cell Count 5.29 M/uL (3.86-4.86)
[2019-10-05 09:46] LABS: Protime INR 0.89
--- NOTE | 2019-10-05 10:16 | RAD REPORT ---
EXAM DESCRIPTION: [facility] Single View10/05/2019 9:34 am CLINICAL HISTORY: Chest pain COMPARISON: 2017 FINDINGS: The lungs appear clear of acute infiltrate. The heart is normal size IMPRESSION: No acute abnormalities displayed
[2019-10-05 10:43] LABS: ALT/SGPT 18 U/L (12-78); AST/SGOT 13 U/L (15-37); Albumin 4.1 g/dL (3.4-5.0); Alkaline Phosphatase 86 U/L (45-117); BUN Blood Urea Nitrogen 13 mg/dL (7-18); Bicarbonate 25 mmol/L (21-32); Bilirubin Direct 0.1 mg/dL (0-0.2); Bilirubin Total 0.3 mg/dL (0.2-1.0); Glucose Level 98 mg/dL (74-106); Magnesium 2.2 mg/dL (1.8-2.4); NT PRO-BNP 30 pg/mL (<125); Potassium 4.1 mmol/L (3.5-5.1); Protein, Total 7.6 g/dL (6.4-8.2); Sodium Level 142 mmol/L (136-145); Troponin (Emerg Dept Use Only) < 0.02 ng/mL (0.0-0.045)
--- NOTE | 2019-10-05 13:19 | ER ---
Nurse's Notes [facility] Name: Denice Gastelum Age: 63 yrs Sex: Female : 1955 Arrival Date: 10/05/2019 Time: 08:57 Bed 5 Private MD: Diagnosis: Non-ST elevation (NSTEMI) myocardial infarction Presentation: 10/05 09:00 Presenting complaint: Patient states: Mid-sternal burning chest pain, radiates to jaw, jl7 reports SOB, started at 0600. Has GERD, feels different, denies N/V/D. Transition of care: patient was not received from another setting of care. Onset of symptoms was October 05, 2019 at 06:00. Risk Assessment: Do you want to hurt yourself or someone else? Patient reports no desire to harm self or others. Initial Sepsis Screen: Does the patient meet any 2 criteria? No. Patient's initial sepsis screen is negative. Does the patient have a suspected source of infection? No. Patient's initial sepsis screen is negative. Care prior to arrival: Medication(s) given: ASA, 81 mg, x 1. 09:14 Method Of Arrival: Ambulatory [facility] 09:14 Acuity: ESTEPHANIA 3 jl7 Triage Assessment: 09:17 General: Appears in no apparent distress. uncomfortable, Behavior is calm, cooperative, jl7 appropriate for age. Pain: Complains of pain in mid-sternal area Pain radiates to jaw Pain currently is 0 out of 10 on a pain scale. at worst was 5 out of 10 on a pain scale. Quality of pain is described as burning, Pain began 3 hours ago. Is intermittent. Neuro: Level of Consciousness is awake, alert, obeys commands, Oriented to person, place, time, situation. Cardiovascular: Patient's skin is warm and dry. Respiratory: Airway is patent Respiratory effort is even, unlabored, Respiratory pattern is regular, symmetrical. Derm: Skin is pink, warm \T\ dry. Historical: - Allergies: 09:17 TETRACYCLINES; jl7 - Home Meds: 09:17 Diovan 12.5 mg Oral tab once daily [Active]; aspirin 81 mg Oral TbEC 1 tab once daily jl7 [Active]; Flonase 50 mcg/actuation Nasal spsn 1 spray 2 times per day [Active]; pantoprazole 40 mg Oral TbEC 1 tab once daily [Active]; Vitamin D Oral [Active]; - PMHx: 09:17 cervical cancer; Hypertension; GERD; jl7 - PSHx: 09:17 Hysterectomy; Heart stents; Knee surgery; jl7 - Immunization history:: Adult Immunizations unknown. - Coronavirus screen:: The patient has NOT traveled to [place] in the past 14 days. Proceed with normal triage process as indicated. - Social history:: Smoking status: Patient reports the use of cigarette tobacco products, smokes one pack cigarettes per day. Patient uses alcohol, on a daily basis. street drugs, marijuana, occasionally . - Ebola Screening: : No symptoms or risks identified at this time. Screenin:39 Abuse screen: Denies threats or abuse. Denies injuries from another. Nutritional jl7 screening: No deficits noted. Tuberculosis screening: No symptoms or risk factors identified. Fall Risk IV access (20 points). Total Hernandez Fall Scale indicates No Risk (0-24 pts). Assessment: 10:20 Reassessment: Patient appears in no apparent distress at this time. No changes from jl7 previously documented assessment. Patient and/or family updated on plan of care and expected duration. Pain level reassessed. Patient is alert, oriented x 3, equal unlabored respirations, skin warm/dry/pink. 11:20 Reassessment: Patient appears in no apparent distress at this time. No changes from jl7 previously documented assessment. Patient and/or family updated on plan of care and expected duration. Pain level reassessed. Patient is alert, oriented x 3, equal unlabored respirations, skin warm/dry/pink. 12:23 Reassessment: Patient appears in no apparent distress at this time. No changes from jl7 previously documented assessment. Patient and/or family updated on plan of care and expected duration. Pain level reassessed. Patient is alert, oriented x 3, equal unlabored respirations, skin warm/dry/pink. Vital Signs: 09:17 BP 165 / 87; Pulse 77; Resp 16 S; Temp 98.1(O); Pulse Ox 97% on R/A; Pain 0/10; jl7 10:20 BP 156 / 76; Pulse 68; Resp 16 S; Pulse Ox 98% on R/A; jl7 11:00 BP 149 / 75; Pulse 67; Resp 16 S; Pulse Ox 100% on R/A; jl7 11:30 BP 129 / 71; Pulse 66; Resp 16 S; Pulse Ox 99% on R/A; Pain 0/10; jl7 12:24 BP 156 / 85; Pulse 66; Resp 16 S; Pulse Ox 99% on R/A; jl7 13:12 BP 159 / 87; Pulse 69; Resp 16 S; Pulse Ox 99% on R/A; jl7 13:18 Weight 62.6 kg (R); jl7 14:00 BP 152 / 94; Pulse 76; Resp 18; Pulse Ox 99% on R/A; em 15:00 BP 132 / 79; Pulse 79; Resp 16; Pulse Ox 99% on R/A; em ED Course: 08:57 Patient arrived in ED. rg4 09:00 Tyshawn Richmond RN is Primary Nurse. jl7 09:02 Binh Ambrose PA is PHCP. jr8 09:02 Rishabh Hoang MD is Attending Physician. jr8 09:16 Triage completed. jl7 09:16 EKG done, by ED staff, reviewed by Binh BARROW. jb1 09:17 Arm band placed on right wrist. jl7 09:19 Arm band placed on right wrist. ss 09:30 Initial lab(s) drawn, by me, sent to lab. Inserted saline lock: 22 gauge in left hand, jl7 using aseptic technique. Blood collected. Patient maintains SpO2 saturation greater than 95% on room air. 09:30 Patient has correct armband on for positive identification. Placed in gown. Bed in low jl7 position. Call light in reach. Side rails up X 1. 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 Pulse ox on. NIBP on. Warm blanket given. 12:21 Repeat lab(s) drawn. by me, sent to lab. sg 13:06 Esha Ramires MD is Hospitalizing Provider. jr8 15:14 No provider procedures requiring assistance completed. Patient admitted, IV remains in em place. 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 jr8 15:14 Admitted to Tele accompanied by tech, via wheelchair, with chart, Report called to [phone] em 15:14 Condition: good 15:14 Instructed on the need for admit, Demonstrated understanding of instructions. 15:19 Patient left the ED. em Signatures: Micheal Oconnor jb1 Soto Aldridge, RN RN Carroll Law RN RN em Brenda Diaz RN RN Binh Ambrose PA PA jr8 Shelley Jordan rg4 Tyshawn Richmond RN RN jl7 Corrections: (The following items were deleted from the chart) 10:21 09:19 BP 138 / 77; Pulse 73bpm; Resp 19bpm; Pulse Ox 98% RA; Temp 97.6F Temporal; 68.04 jl7 kg; Height 5 ft. 4 in.; BMI: 25.7; Pain 0/10; ss
--- NOTE | 2019-10-05 13:19 | EDPHYS ---
Physician Documentation [facility] Name: Denice Gastelum Age: 63 yrs Sex: Female : 1955 Arrival Date: 10/05/2019 Time: 08:57 Bed 5 Private MD: ED Physician Rishabh Hoang HPI: 10/05 10:44 This 63 yrs old Female presents to ER via Ambulatory with complaints of Chest jr8 Pain. 10:44 The patient or guardian reports chest pain that is located primarily in the substernal jr8 area. Onset: acutely, this morning. The pain radiates to jaw. Associated signs and symptoms: The patient has no apparent associated signs or symptoms. The chest pain is described as causing indigestion, a pressure. Duration: The patient or guardian reports a single episode, that is now resolved. Modifying factors: The symptoms are alleviated by nothing. the symptoms are aggravated by nothing. Severity of pain: At its worst the pain was moderate in the emergency department the pain has resolved. The patient has experienced a previous episode. The patient has not recently seen a physician. Last stress test was a year ago which was unremarkable. EKG 2 weeks ago without acute findings . Historical: - Allergies: 09:17 TETRACYCLINES; jl7 - Home Meds: 09:17 Diovan 12.5 mg Oral tab once daily [Active]; aspirin 81 mg Oral TbEC 1 tab once daily jl7 [Active]; Flonase 50 mcg/actuation Nasal spsn 1 spray 2 times per day [Active]; pantoprazole 40 mg Oral TbEC 1 tab once daily [Active]; Vitamin D Oral [Active]; - PMHx: 09:17 cervical cancer; Hypertension; GERD; jl7 - PSHx: 09:17 Hysterectomy; Heart stents; Knee surgery; jl7 - Immunization history:: Adult Immunizations unknown. - Coronavirus screen:: The patient has NOT traveled to [place] in the past 14 days. Proceed with normal triage process as indicated. - Social history:: Smoking status: Patient reports the use of cigarette tobacco products, smokes one pack cigarettes per day. Patient uses alcohol, on a daily basis. street drugs, marijuana, occasionally . - Ebola Screening: : No symptoms or risks identified at this time. ROS: 10:44 Eyes: Negative for injury, pain, redness, and discharge, ENT: Negative for injury, jr8 pain, and discharge, Neck: Negative for injury, pain, and swelling, Respiratory: Negative for shortness of breath, cough, wheezing, and pleuritic chest pain, Abdomen/GI: Negative for abdominal pain, nausea, vomiting, diarrhea, and constipation, Back: Negative for injury and pain, MS/Extremity: Negative for injury and deformity, Skin: Negative for injury, rash, and discoloration, Neuro: Negative for headache, weakness, numbness, tingling, and seizure. 10:44 Cardiovascular: Positive for chest pain, Negative for edema, orthopnea, palpitations, paroxysmal nocturnal dyspnea. Exam: 10:44 Eyes: Pupils equal round and reactive to light, extra-ocular motions intact. Lids and jr8 lashes normal. Conjunctiva and sclera are non-icteric and not injected. Cornea within normal limits. Periorbital areas with no swelling, redness, or edema. ENT: Nares patent. No nasal discharge, no septal abnormalities noted. Tympanic membranes are normal and external auditory canals are clear. Oropharynx with no redness, swelling, or masses, exudates, or evidence of obstruction, uvula midline. Mucous membranes moist. Neck: Trachea midline, no thyromegaly or masses palpated, and no cervical lymphadenopathy. Supple, full range of motion without nuchal rigidity, or vertebral point tenderness. No Meningismus. Cardiovascular: Regular rate and rhythm with a normal S1 and S2. No gallops, murmurs, or rubs. Normal PMI, no JVD. No pulse deficits. Respiratory: Lungs have equal breath sounds bilaterally, clear to auscultation and percussion. No rales, rhonchi or wheezes noted. No increased work of breathing, no retractions or nasal flaring. Abdomen/GI: Soft, non-tender, with normal bowel sounds. No distension or tympany. No guarding or rebound. No evidence of tenderness throughout. Back: No spinal tenderness. No costovertebral tenderness. Full range of motion. Skin: Warm, dry with normal turgor. Normal color with no rashes, no lesions, and no evidence of cellulitis. MS/ Extremity: Pulses equal, no cyanosis. Neurovascular intact. Full, normal range of motion. Neuro: Awake and alert, GCS 15, oriented to person, place, time, and situation. Cranial nerves II-XII grossly intact. Motor strength 5/5 in all extremities. Sensory grossly intact. Cerebellar exam normal. Normal gait. 10:44 ECG was reviewed by the Attending Physician. Vital Signs: 09:17 BP 165 / 87; Pulse 77; Resp 16 S; Temp 98.1(O); Pulse Ox 97% on R/A; Pain 0/10; jl7 10:20 BP 156 / 76; Pulse 68; Resp 16 S; Pulse Ox 98% on R/A; jl7 11:00 BP 149 / 75; Pulse 67; Resp 16 S; Pulse Ox 100% on R/A; jl7 11:30 BP 129 / 71; Pulse 66; Resp 16 S; Pulse Ox 99% on R/A; Pain 0/10; jl7 12:24 BP 156 / 85; Pulse 66; Resp 16 S; Pulse Ox 99% on R/A; jl7 13:12 BP 159 / 87; Pulse 69; Resp 16 S; Pulse Ox 99% on R/A; jl7 13:18 Weight 62.6 kg (R); jl7 14:00 BP 152 / 94; Pulse 76; Resp 18; Pulse Ox 99% on R/A; em 15:00 BP 132 / 79; Pulse 79; Resp 16; Pulse Ox 99% on R/A; em MDM: 09:02 Patient medically screened. jr8 13:05 The patient was given aspirin in the Emergency Department. Data reviewed: vital signs, [facility] nurses notes, lab test result(s), EKG, radiologic studies, plain films. Data interpreted: Pulse oximetry: on room air is 99 %. Interpretation: normal. Counseling: I had a detailed discussion with the patient and/or guardian regarding: the historical points, exam findings, and any diagnostic results supporting the discharge/admit diagnosis, lab results, radiology results, the need for further work-up and treatment in the hospital. ED course: Second Troponin positive. Will admit to hospitalist . 10/05 09:02 Order name: Basic Metabolic Panel [facility] 10/05 09:02 Order name: CBC with Diff 10/05 09:02 Order name: LFT's [facility] 10/05 09:02 Order name: Magnesium [facility] 10/05 09:02 Order name: NT PRO-BNP 10/05 09:02 Order name: PT-INR [facility] 10/05 09:02 Order name: Troponin (emerg Dept Use Only) [facility] 10/05 10:07 Order name: CBC with Automated Diff; Complete Time: 10:13 EDMS 10/05 10:08 Order name: Protime (+INR); Complete Time: 10:13 EDMS 10/05 10:44 Order name: Basic Metabolic Panel; Complete Time: 10:49 EDMS 10/05 10:44 Order name: Liver (Hepatic) Function; Complete Time: 10:49 EDMS 10/05 10:44 Order name: Troponin (Emerg Dept Use Only); Complete Time: 10:49 EDMS 10/05 10:44 Order name: NT PRO-BNP; Complete Time: 10:49 EDMS 10/05 10:44 Order name: Magnesium; Complete Time: 10:49 EDMS 10/05 09:02 Order name: XRAY Chest (1 view) 10/05 09:02 Order name: EKG; Complete Time: 09:04 [facility] 10/05 09:02 Order name: Cardiac monitoring; Complete Time: 09:16 10/05 09:02 Order name: EKG - Nurse/Tech; Complete Time: 09:17 10/05 09:02 Order name: IV Saline Lock; Complete Time: 09:39 10/05 09:02 Order name: Labs collected and sent; Complete Time: 09:39 10/05 09:02 Order name: O2 Per Protocol; Complete Time: 09:17 10/05 09:02 Order name: O2 Sat Monitoring; Complete Time: 09:17 [facility] 10/05 10:28 Order name: RAD; Complete Time: 10:31 EDMS 10/05 11:48 Order name: Troponin (emerg Dept Use Only) 10/05 12:48 Order name: Troponin (Emerg Dept Use Only); Complete Time: 13:00 EDMS 10/05 13:16 Order name: EKG; Complete Time: 13:18 [facility] EC:44 Rate is 79 beats/min. Rhythm is regular, Sinus Rhythm with Occasional PVCs. QRS [place] is jr8 Normal. NC interval is normal at 136 msec. QRS interval is normal at 84 msec. QT interval is normal at 426 msec. No Q waves. T waves are Normal. No ST changes noted. Clinical impression: Normal ECG and No evidence of ischemia. Interpreted by me. Reviewed by me. 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 Preliminary diagnosis is Non-ST elevation (NSTEMI) myocardial infarction. - Bed requested for Telemetry/MedSurg (Inpatient). - Status is Inpatient Admission. em - Condition is Stable. - Problem is new. - Symptoms have improved. Addendum: 10/07/2019 08:22 Co-signature as Attending Physician, Rishabh Hoang MD I agree with the assessment and c moore plan of care. Signatures: Dispatcher [employer] EDRishabh House MD MD cha Munoz, Edgar, RN RN Binh Ambrose PA PA jr8 Tyshawn Richmond RN RN jl7 Carla Juarez Corrections: (The following items were deleted from the chart) 10/05 14:12 13:07 Hospitalization Ordered by Esha Ramires MD for Inpatient Admission. eb Preliminary diagnosis is Non-ST elevation (NSTEMI) myocardial infarction. Bed requested for Telemetry/MedSurg (Inpatient). Status is Inpatient Admission. Condition is Stable. Problem is new. Symptoms have improved. jr8 15:19 14:12 10/05/2019 13:07 Hospitalization Ordered by Esha Ramires MD for Inpatient em Admission. Preliminary diagnosis is Non-ST elevation (NSTEMI) myocardial infarction. Bed requested for Telemetry/MedSurg (Inpatient). Status is Inpatient Admission. Condition is Stable. Problem is new. Symptoms have improved. eb
[2019-10-05] MEDS ORDERED: ENOXAPARIN 60 MG/0.6 ML SQ ONE (13:41)
[2019-10-05] MEDS ORDERED: ACETAMINOPHEN 500 MG TAB PO PRN (15:23)
[2019-10-05] MEDS ORDERED: ZOLPIDEM TARTRATE 5 MG TABLET PO PRN (15:23)
[2019-10-05] MEDS ORDERED: ONDANSETRON 4 MG/2 ML VIAL IV PRN (15:23)
[2019-10-05] MEDS ORDERED: NITROGLYCERIN 0.4 MG/TAB SL PRN (15:23)
[2019-10-05 16:39] LABS: CKMB Creatine Kinase MB 2.6 ng/mL (0.3-3.6)
[2019-10-05 16:42] LABS: Troponin I 0.72 ng/mL (0.0-0.045)
[2019-10-05] MEDS ORDERED: ENOXAPARIN 60 MG/0.6 ML SQ SCH (17:00)
[2019-10-05] MEDS ORDERED: INFLUENZA VACCINE (for 3y+) 0.5 ML DOSE IMVAC ONE (17:00)
--- NOTE | 2019-10-05 19:14 | HP ---
Date of Admission: 10/05/2019 Reason For Admission: Chest pain. History Of Present Illness: This is a 63-year-old female with history of carotid disease status post stent placement, presented to emergency room with acute onset of substernal chest pain radiating to her jaw. The pain is associated with mild nausea. No vomiting. She has not had any pain in the arm . There was no shortness of breath. In the emergency room, she was evaluated. Her first set of car diac enzyme were negative, but then troponin went up to 0.08. EKG done in the emergency room as well as chest x-ray and it was negative. Patient was admitted to be ruled out. Currently, she is lying in bed. She looks comfortable. She has no more chest pain. Review of Systems: Otherwise as below. Past Medical History: Significant for coronary artery disease with a stent placement, cervical cance r, hypertension, acid reflux. Past Surgical History: Significant for hysterectomy, knee surgery and heart stent. Home Medications: Diovan 12.5 mg orally once a day, aspirin 81 mg once a day, Flonase, vitamin D, Pr otonix 40 mg daily. Allergies: TETRACYCLINE. Social History: She is . She has 3 kids. 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 She does smoke 1 pack a day for the last 5 years. She does drink socially. Does use medical marijuana sometimes. Family History: Father and mother both . Father had dementia. Mother of unknown etiology. Review of Systems: Denies any fever, chills, night sweats, dizziness, lightheaded, headache, blurred vision. There is n o cough, sputum, shortness of breath. There is no nausea, vomiting, abdominal pain, change in bowel movement, diarrhea, constipation, dysuria, frequency, urgency, hematuria. Chest pain as mentioned ab ove. There is no history of depression, anxiety, seizure or stroke. Physical Examination: Vital Signs: Blood pressure is 155/87, respiratory rate 16, pulse 69, temperature 98.1, saturating 1 00% on room air. General: Patient is alert and oriented x3. Does not look in any distress. HEENT: Atraumatic, normocephalic. PERRLA. Oral mucosa is moist. Neck: Supple. No JVD. No carotid bruits. Chest: Clear to auscultation. Good air entry. Heart: Regular rate and rhythm. S1, S2 normal. No gallop or murmur. Abdomen: Soft, nontender with no hepatosplenomegaly. Positive bowel sounds. Extremities: No clubbing, cyanosis, or edema. No calf tenderness. Neurologic: Grossly intact. Cranial exam 2 through 12 intact. Normal sensation. Normal reflexes. Normal muscle strength. Laboratory Data: Today, showed CBC within normal. Cardiac enzyme, troponin 0.08. Chemistry within normal. EKG, normal sinus rhythm. Chest x-ray negative. Assessment/plan: A 63-year-old female with history of chronic disease with a stent placement, presen stan with acute onset of chest pain. 1.Chest pain rule out myocardial infarction. Patient with history of chronic disease. She will be admitted to be ruled out. Her troponin is borderline. We will consult Cardiology as patient sees Dr Blas Huertas in the office. Continue patient on aspirin, Plavix, Lovenox full dose as well as low dose of metoprolol and statin. 2.We will check lipid profile. 3.Tobacco abuse. Advised to quit. 4.Acid reflux. Continue on PPI. SADIE/CLARY Voice ID: [id number]
[2019-10-05] MEDS: ATORVASTATIN 40 MG TAB PO SCH (20:17)
[2019-10-05] MEDS: ENOXAPARIN 60 MG/0.6 ML SQ SCH (20:17)
[2019-10-05] MEDS: METOPROLOL TAR 50 MG TAB PO SCH (20:17)
--- NOTE | 2019-10-05 21:05 | CON ---
Identification: 63-year-old woman. Chief Complaint: Chest pain. History Of Present Illness: Mrs. Anand is 63. In 2015, she had a proximal LAD stent. Since then, she has stopped taking Plavix, stopped taking a statin and continues to smoke so we consider a very h igh risk patient for redeveloping heart disease. She started to have chest pain today. It was simil ar to what she had in 2015 and since been. Here, her EKG is unremarkable, but her troponins have rod e up from less than 0.02 to 0.72 pattern and level of troponin elevation that is very suggestive. Sh leif has severe coronary stenosis. Allergies: THE PATIENT IS ALLERGIC TO TETRACYCLINE. Outpatient Medications: Been Flonase, Protonix, and valsartan. Past Medical History: She does not have diabetes. She has coronary heart disease and hypertension a nd dyslipidemia. Physical Examination: General: She is 5 feet 5 inches, 210 pounds. Alert, oriented, pleasant, not in distress. Lungs: Clear. HEART: Within normal limits. Abdomen: Soft. Extremities: Palpable distal pulses and radial pulses are quite small. Impression: The patient has unstable angina. I think she should undergo a cardiac catheterization. It seems that she wants to avoid doing this. I would strongly recommend that we do a heart catheter ization on Monday. She agreed to reconsider it and we will talk about tomorrow. She is presently pa in free, but the diagnosis is [id number] myocardial infarction, a variant of acute coronary syndrome. Cardiac catheterization is strongly indicated with a very high likelihood she will need re vascularization. CHLOE/CLARY Voice ID: [id number] Report ID: [id number]
[2019-10-06 00:30] LABS: CKMB Creatine Kinase MB 2.6 ng/mL (0.3-3.6)
[2019-10-06 00:34] LABS: Troponin I 1.08 ng/mL (0.0-0.045)
--- NOTE | 2019-10-06 06:22 | EKG ---
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
--- NOTE | 2019-10-06 06:23 | EKG ---
Test Date: 2019-10-05 Test Time: 09:05:41 Firesetter: LEONIDAS MEASUREMENT RESULTS: Intervals: Rate: 79 [place]: 136 QRSD: 84 QT: 372 QTc: 426 [place]: P: 67 WA: 136 QRS: 68 T: 26 INTERPRETIVE STATEMENTS: Sinus rhythm with occasional premature Atrial complexes LVH with secondary repolarization changes Abnormal ECG Compared to ECG 06/01/2018 23:58:35 Atrial premature complex(es) now present Sinus bradycardia no longer present Electronically Signed On 10-06-19 06:23:20 ELECTRONIC TRAIN CONTROL TECHNICIAN by Dashawn Lou
[2019-10-06 08:07] LABS: CKMB Creatine Kinase MB 2.1 ng/mL (0.3-3.6)
[2019-10-06 08:14] LABS: Troponin I 0.63 ng/mL (0.0-0.045)
[2019-10-06] MEDS ORDERED: VALSARTAN 40 MG TAB PO SCH (09:00)
[2019-10-06] MEDS: PANTOPRAZOLE 40MG TABLET PO SCH (09:15)
[2019-10-06] MEDS: METOPROLOL TAR 50 MG TAB PO SCH ×2 (09:15→21:42)
[2019-10-06] MEDS: ASPIRIN 325 MG TAB PO SCH (09:16)
[2019-10-06] MEDS: ENOXAPARIN 60 MG/0.6 ML SQ SCH ×2 (09:16→21:43)
[2019-10-06] MEDS: CLOPIDOGREL 75 MG TABLET PO SCH (09:16)
[2019-10-06 14:09] VITALS: BMI 34.9
--- NOTE | 2019-10-06 15:16 | PN ---
Mrs Gastelum has clear evidence of this being an NM. Her troponin went high as 1.08, trending down ri ght now. Ms Gastelum is very likely to have recurrent CAD, perhaps restenoses within the stent, perha ps lesions elsewhere. She may have developed triple-vessel disease since her cardiac cath in 2015, b ut it is clear she is unstable at this point. She agrees to do a cardiac cath, but she wants to wait until Monday to do it that is agreeable to me as long she is stable and not having further chest pain and that seems to be the case. We will set up the cardiac cath possible stent for Monday. The patient seems to understand the procedure, its potential benefits, indicati ons, risks, and agrees to proceed. AMENA Voice ID: [id number] Report ID: [id number]
--- NOTE | 2019-10-06 16:58 | PN ---
Subjective: Currently, patient is lying in bed. She looks comfortable. She has no chest pain, no a bdominal pain, no fever, no chills. Her is at bedside. Objective: Vital Signs: Currently, blood pressure 141/80, respiratory rate 16, pulse 59, temperatur e 97.2. General: Patient is alert, oriented x3. Does not look in any distress. HEENT: Atraumatic, normocephalic. PERRLA. Oral mucosa is moist. Neck: Supple. No JVD. No carotid bruits. Chest: Clear to auscultation. Good air entry. Heart: Regular rate and rhythm. S1, S2 normal. No gallop or murmur. Abdomen: Soft, nontender with no hepatosplenomegaly. Positive bowel sounds. Extremities: No clubbing, cyanosis, or edema. No calf tenderness. Neurologic: Grossly intact. Laboratory Data: Today showed troponin peaked at 1.08 and down to 0.63. Triglycerides 199, choleste rol 208, LDL 92, HDL at 76. Assessment And Plan: 1.[id number] myocardial infarction with elevated troponin. Patient is still on Plavix, aspiri n, full dose of Lovenox. She is scheduled to have cardiac cath. Patient would like to wait for Dr. Huertas who will probably be available on Monday morning. In the meantime, we will continue beta-bl ocker and low dose of DARIO inhibitor as well as statin. 2.Lipid panel check. Patient has slight hypertriglyceridemia. Cholesterol is high, but LDL is 92 ( goal is below 70). Continue statin. 3.Tobacco abuse. Advised strongly to quit. 4.History of acid reflux. We will continue on PPI. 5.Discharge plan will be after cardiac cath on Monday and depends if patient needs stent or not. SADIE/CLARY Voice ID: [id number] Report ID: [id number]
[2019-10-06] MEDS: ATORVASTATIN 40 MG TAB PO SCH (21:41)
[2019-10-07 04:20] LABS: Absolute Lymphocytes (CBC) 2.5 K/uL (0.7-4.9); Basophils % 1.3 % (0-1.3); Hematocrit 42.7 % (36.0-45.0); Lymphocytes % 49.9 % (15.3-44.8); MPV 9.2 fL (7.6-11.3); RBC Red Blood Cell Count 4.88 M/uL (3.86-4.86)
[2019-10-07 04:32] LABS: Albumin 3.4 g/dL (3.4-5.0); Bilirubin Total 0.5 mg/dL (0.2-1.0); Potassium 4.6 mmol/L (3.5-5.1); Protein, Total 6.2 g/dL (6.4-8.2)
[2019-10-07] MEDS: METOPROLOL TAR 50 MG TAB PO SCH (08:03)
[2019-10-07] MEDS: ASPIRIN 325 MG TAB PO SCH (08:03)
[2019-10-07] MEDS: PANTOPRAZOLE 40MG TABLET PO SCH (08:03)
[2019-10-07] MEDS: CLOPIDOGREL 75 MG TABLET PO SCH (08:03)
[2019-10-07] MEDS: ENOXAPARIN 60 MG/0.6 ML SQ SCH (08:04)
[2019-10-07] MEDS ORDERED: NA CHLORIDE 0.9% 500 ML ONE ×2 (09:22→10:19)
[2019-10-07] MEDS ORDERED: HEPA 1000U/500MLS 2,000 UNIT/1,000 ML BAG IV ONE (10:08)
[2019-10-07] MEDS ORDERED: LIDOCAINE 1% MPF 30 ML VIAL ONE (10:08)
[2019-10-07] MEDS ORDERED: MIDAZOLAM HCL 2 MG/2 ML INJ ONE ×2 (10:33→10:38)
[2019-10-07] MEDS ORDERED: NA CHLORIDE 0.9% 0 ML ONE (10:33)
[2019-10-07] MEDS ORDERED: FENTANYL CITR 100 MCG/2 ML ONE (10:33)
[2019-10-07] MEDS ORDERED: ATROPINE SULF 1 MG/10 ML SYR IV ONE (10:33)
--- NOTE | 2019-10-07 10:36 | P.PN ---
Subjective Date of Service: 10/07/19 Chief Complaint: chest pain / NSTEMI Subjective: No new changes, Improving Review of Systems 10-point ROS is otherwise unremarkable Physical Examination - Vital Signs Temperature: 97.6 F Blood Pressure: 165/69 Pulse: 55 Respirations: 18 Pulse Ox (%): 99 - Physical Exam General: Alert, In no apparent distress HEENT: Atraumatic, Normocephalic Neck: Supple Respiratory: Clear to auscultation bilaterally, Normal air movement Cardiovascular: Regular rate/rhythm, Normal S1 S2 Capillary refill: <2 Seconds Gastrointestinal: Soft and benign, W/out hepatosplenomegaly Musculoskeletal: No clubbing, No swelling Integumentary: No rashes Neurological: Normal speech, Normal strength at 5/5 x4 extr Lymphatics: No axilla or inguinal lymphadenopathy External genitalia: Deferred Rectal: Deferred Assessment & Plan - Problems (Diagnosis) (1) NSTEMI (non-ST elevated myocardial infarction) Current Visit: Yes Status: Acute Plan: Trended cardiac enzymes Cardiology consulted Monitor under telemetry Started on aspirin, Plavix, statin Continue Aggrenox Cardiology recommended Left heart catheterization Awaiting further recommendation is after [facility] (2) Hyperlipidemia Current Visit: Yes Status: Acute Plan: Will start on statin Advised lifestyle modification Qualifiers: Hyperlipidemia type: mixed hyperlipidemia Qualified Code(s): E78.2 - Mixed hyperlipidemia (3) Smoking Current Visit: Yes Status: Chronic Plan: NSTEMI troponin trended 0.072, 1.08, O.63 Monitor telemetry Cardiology consult appreciated CBC monitored hyperlipidemia noted Was start on statin Getting a left heart catheterization Awaiting further recommendations from cardiology for post [facility] Advised smoking cessation (4) Accelerated hypertension Current Visit: Yes Status: Acute Plan: Titrate antihypertensives Monitor under tele Discharge Plan: Home Plan to discharge in: 24 Hours Time Spent Managing Pts Care (In Minutes): 42
[2019-10-07] MEDS ORDERED: ONDANSETRON 4 MG/2 ML VIAL ONE (10:41)
[2019-10-07 12:25] VITALS: BP 149/73; TEMP 96.9
--- NOTE | 2019-10-07 13:35 | P.DS ---
Admission Date: 10/06/19 Discharge Date: 10/07/19 Disposition: ROUTINE DISCHARGE Discharge Condition: GOOD Reason for Admission: chest pain / NSTEMI - Problems (1) NSTEMI (non-ST elevated myocardial infarction) Current Visit: Yes Status: Acute (2) Hyperlipidemia Current Visit: Yes Status: Acute Qualifiers: Hyperlipidemia type: mixed hyperlipidemia Qualified Code(s): E78.2 - Mixed hyperlipidemia (3) Smoking Current Visit: Yes Status: Chronic (4) Accelerated hypertension Current Visit: Yes Status: Acute Brief History of Present Illness: 63-year-old female with history of carotid disease status post stent placement, presented to emergency room with acute onset of substernal chest pain radiating to her jaw. The pain is associated with mild nausea. No vomiting. She has not had any pain in the arm. There was no shortness of breath. In the emergency room, she was evaluated. Her first set of cardiac enzyme were negative, but then troponin went up to 0.08. EKG done in the emergency room as well as chest x-ray and it was negative. Patient was admitted to be ruled out. . Hospital Course: NSTEMI troponin trended 0.072, 1.08, O.63 Monitor telemetry Cardiology consult appreciated CBC monitored hyperlipidemia noted Was start on statin Getting a left heart catheterization Awaiting further recommendations from cardiology for post [facility] Advised smoking cessation The patient was admitted and was monitored under telemetry. Troponin that standing higher initially which was trended down. The patient was started on aspirin, Plavix, statin along with control of blood pressure with beta- blockers. She was also started on Lovenox for therapeutic anticoagulation. cardiology was consulted, she underwent a left heart catheterization which showed no occlusive coronaries. Cardiology recommended continuing antiplatelet and statins and outpatient follow up. Patient wanted go home and is being discharged home today in a stable condition for with advice to follow up with PCP in 1 week and also with Cardiology in 1-2 weeks Vital Signs/Physical Exam: Temp Pulse Resp BP Pulse Ox 96.9 F 54 15 149/73 H 99 10/07/19 12:24 10/07/19 12:24 10/07/19 12:24 10/07/19 12:24 10/07/19 12:24 General: Alert, In no apparent distress HEENT: Atraumatic, Normocephalic Neck: Supple Respiratory: Clear to auscultation bilaterally, Normal air movement Cardiovascular: Normal pulses, Regular rate/rhythm Capillary refill: <2 Seconds Gastrointestinal: Soft and benign, W/out hepatosplenomegaly Musculoskeletal: No clubbing, No swelling Integumentary: No rashes Neurological: Normal speech, Normal strength at 5/5 x4 extr Laboratory Data at Discharge: WBC 4.9 K/uL (4.3-10.9) D 10/07/19 03:52 Hgb 13.8 g/dL (12.0-15.0) 10/07/19 03:52 Hct 42.7 % (36.0-45.0) 10/07/19 03:52 Plt Count 238 K/uL (152-406) 10/07/19 03:52 PT 10.5 SECONDS (9.5-12.5) 10/05/19 09:30 INR 0.89 10/05/19 09:30 Sodium 143 mmol/L (136-145) 10/07/19 03:52 Potassium 4.6 mmol/L (3.5-5.1) 10/07/19 03:52 BUN 12 mg/dL (7-18) 10/07/19 03:52 Creatinine 0.67 mg/dL (0.55-1.3) 10/07/19 03:52 Glucose 91 mg/dL (74-106) 10/07/19 03:52 Magnesium 2.2 mg/dL (1.8-2.4) 10/05/19 09:30 Total Bilirubin 0.5 mg/dL (0.2-1.0) 10/07/19 03:52 AST 11 U/L (15-37) L 10/07/19 03:52 ALT 16 U/L (12-78) 10/07/19 03:52 Alkaline Phosphatase 59 U/L (45-117) 10/07/19 03:52 Troponin I 0.63 ng/mL (0.0-0.045) H* 10/06/19 07:38 Triglycerides 199 mg/dL (<150) H 10/06/19 07:38 Cholesterol 208 mg/dL (<200) H 10/06/19 07:38 HDL Cholesterol 76 mg/dL (40-60) H 10/06/19 07:38 Cholesterol/HDL Ratio 2.74 10/06/19 07:38 Home Medications: Flonase 50MCG Nasal [place] 1 puff IH DAILY PRN 10/17/11 Pantoprazole [Protonix Tab*] 40 mg PO DAILY 10/05/19 Valsartan 320 mg PO DAILY 10/05/19 Aspirin [Aspirin EC 81 MG] 81 mg PO DAILY #30 tablet. 10/07/19 Atorvastatin Calcium [Lipitor] 40 mg PO BEDTIME #30 tab 10/07/19 Clopidogrel Bisulfate [Plavix*] 75 mg PO DAILY #30 tablet 10/07/19 Metoprolol Tartrate [Lopressor*] 50 mg PO BID #60 tab 10/07/19 New Medications: Aspirin [Aspirin EC 81 MG] 81 mg PO DAILY #30 tablet. Atorvastatin Calcium [Lipitor] 40 mg PO BEDTIME #30 tab Clopidogrel Bisulfate [Plavix*] 75 mg PO DAILY #30 tablet Metoprolol Tartrate [Lopressor*] 50 mg PO BID #60 tab Diet: AHA Activity: Ad pearl Followup: Dashawn Lou MD [ACTIVE - CAN ADMIT] -
[2019-10-07 15:44] VITALS: O2SAT 97
[2019-10-07] MEDS ORDERED: PNEUMOCOCCAL VACCINE 0.5 ML IMVAC ONE (16:00)
[2019-10-07] MEDS ORDERED: INFLUENZA VACCINE (for 3y+) 0.5 ML DOSE IMVAC ONE (16:00)
--- NOTE | 2019-10-07 21:11 | OP ---
Surgeon: Dashawn Lou MD Identification: 63-year-old woman. Indication: Mrs. Gastelum had a left heart catheterization with coronary and left ventricular angiogr aphy. Procedure Findings: There was no coronary stenosis. Previously placed LAD stent from 2015 is widely patent. No in-stent stenosis or compromise at all. All of her arteries are free of any stenosis. Very smooth lumens, normal flow. Left ventricular ejection fraction 65%. There is no segmental wall motion abnormality. Left ventricular end-diastolic pressure mildly elevated at 19. There is no pul lback across the aortic valve, but there is systolic hypertension and LV pressure is 162/19. Procedure In Detail: The patient had evidence of a non-ST elevation [place]. She was brought to the [facility] slab miller operator in a fasting state, sedated with Versed and fentanyl, prepared and draped in usual steri le fashion and right femoral approach was used. She had an abnormal Bucky's test. Tissues around th e right femoral artery were anesthetized with 1% lidocaine. The artery was entered using an 18-gauge needle, cannulated with a short J-wire and a 4-Mauritian sheath was placed. It was flushed. We used t he sheath for the entire procedure. A JL4 failed to engage the left coronary ostium. The JL5 was vora ccessful and a 3DRC was successful in engaging the right. We used an angled pigtail to engage the le ft ventricle and taken LV gram. At the end of the procedure, catheters were withdrawn over a wire. An angiogram was done of the right femoral artery through the sheath. Adequate anatomy was seen. We closed the arteriotomy using Angio-Seal device. Estimated Blood Loss: 10 mL. Ladies Suit Operator: Meagan Duenas. Time Spent: Total conscious sedation time 30 minutes. Complications: None. SH/MODL Voice ID: [id number] Report ID: [id number]
== END 2019-10-07 15:30 | disposition home or self-care (01) | DRG 282 ==
LOC: ER 08:55 → ERHOLD 13:40 → 4TH 14:25 → OBSVTOIN 10-06 15:48
PROVIDERS: ADMIT Internal Medicine; ATTEND Internal Medicine
PROC: 4A023N7 Measurement of Cardiac Sampling and Pressure, Left Heart, Percutaneous Approach (ICD-10-PCS; principal; 2019-10-07)
PROC: B201YZZ Plain Radiography of Multiple Coronary Arteries using Other Contrast (ICD-10-PCS; 2019-10-07)
PROC: B205YZZ Plain Radiography of Left Heart using Other Contrast (ICD-10-PCS; 2019-10-07)
DX: I21.4 Non-ST elevation (NSTEMI) myocardial infarction (principal); E78.5 Hyperlipidemia, unspecified; I10 Essential (primary) hypertension; F17.210 Nicotine dependence, cigarettes, uncomplicated; I25.110 Atherosclerotic heart disease of native coronary artery with unstable angina pectoris; Z95.5 Presence of coronary angioplasty implant and graft; Z85.41 Personal history of malignant neoplasm of cervix uteri; Z23 Encounter for immunization
CPT/HCPCS: 36415; 71045; 80048; 80053; 80061; 80076; 82550; 82553; 83735; 83880; 84484; 85025; 85610; 90471; 90670; 93005; 93458; 96372; 99285; C1760; C1893; G0378; J0583; J1650; J2250; J2405; J3010; J7040; Q2035

== ENCOUNTER 2022-10-25 12:44 | Inpatient (IN) | payer OTHER ==
[2022-10-25 13:14] LABS: Absolute Lymphocytes (CBC) 2.1 K/uL (0.7-4.9); Hematocrit 43.8 % (36.0-45.0); Lymphocytes % 30.7 % (15.3-44.8); MCV 85.6 fL (80-100); MPV 9.1 fL (7.6-11.3); RBC Red Blood Cell Count 5.12 M/uL (3.86-4.86)
[2022-10-25 13:53] LABS: Potassium 3.7 mmol/L (3.5-5.1)
[2022-10-25 13:55] LABS: Troponin High Sensitivity 623.3 pg/mL (<58.9)
--- NOTE | 2022-10-25 14:23 | RAD REPORT ---
EXAM DESCRIPTION: RAD - Chest Single View - 10/25/2022 2:15 pm CLINICAL HISTORY: CHEST PAIN Chest pain. COMPARISON: Chest Single View dated 10/05/2019; Chest Single View dated 05/23/2018 FINDINGS: Portable technique limits examination quality. The lungs are grossly clear. The heart is normal in size. No displaced fractures. IMPRESSION: No acute intrathoracic process suspected.
[2022-10-25] MEDS ORDERED: ASPIRIN 81 MG CHEWABLE TABLET ONE (14:52)
[2022-10-25] MEDS ORDERED: HEPARIN/D5W 25,000 UNIT/500 ML BAG IV ONE (14:52)
[2022-10-25] MEDS ORDERED: ACETAMINOPHEN 325 MG TABLET PO PRN (16:13)
[2022-10-25] MEDS ORDERED: HYDROCODONE/APAP 5/325 MG TAB PO PRN (16:13)
[2022-10-25] MEDS ORDERED: ONDANSETRON 4 MG/2 ML VIAL IV PRN (16:20)
--- NOTE | 2022-10-25 16:25 | P.HP ---
Certification for Inpatient Patient admitted to: Observation With expected LOS: <2 Midnights Patient will require the following post-hospital care: None Practitioner: I am a practitioner with admitting privileges, knowledge of patient current condition, hospital course, and medical plan of care. Services: Services provided to patient in accordance with Admission requirements found in Title 42 Section 412.3 of the Code of Federal Regulations Patient History Date of Service: 10/25/22 Reason for admission: Chest pain History of Present Illness: Patient is a 66-year-old female with a past medical history significant for hyperlipidemia, nicotine dependence, hypertension, cervical cancer, GERD, CAD with stent, [place] who presents with complaint of chest paiu that has been ongoing intermittently for the past 1 month. Patient reported that chest pain is located in the substernal chest area and chest pain has been self resolving after a couple minutes. Patient reported that chest pain became worse yesterday and lasted for a prolonged length of time. Patient rated pain as 10/10 in severity and described pain as sharp\stabbing quality. Patient stated that chest pain radiates to her neck. Patient denies any other signs or symptoms. Symptoms are aggravated or relieved by nothing. Patient followed up with her carbonation equipment operator and was instructed to come to the ER due to elevated troponin. Patient decided to present to the ER as directed by her carbonation equipment operator. Allergies tetracycline [Tetracycline] Allergy (Unknown, Verified 06/10/15 09:28) Hives/Rash Home Medications: Flonase 50MCG Nasal [place] 1 puff IH DAILY PRN 10/17/11 Pantoprazole [Protonix Tab*] 40 mg PO DAILY 10/05/19 Valsartan 320 mg PO DAILY 10/05/19 Aspirin [Aspirin EC 81 MG] 81 mg PO DAILY #30 tablet. 10/07/19 Atorvastatin Calcium [Lipitor] 40 mg PO BEDTIME #30 tab 10/07/19 Clopidogrel Bisulfate [Plavix*] 75 mg PO DAILY #30 tablet 10/07/19 Metoprolol Tartrate [Lopressor*] 50 mg PO BID #60 tab 10/07/19 - Past Medical/Surgical History Diabetic: No -: HTN -: GERD -: Cervical Cancer -: Cardiac stent -: Knee sx -: Hysterctomy - Family History Father -: Heart disease Mother -: Other (see notes) Notes: CHF, COPD - Social History Smoking Status: Current every day smoker Counseled patient to stop smoking for: less than 10 minutes Smoking therapy provided: Yes Patient receptive to therapy: Yes Alcohol use: Yes Caffeine use: Yes Place of Residence: Home Review of Systems General: Unremarkable Eyes: Unremarkable ENT: Unremarkable Respiratory: Unremarkable Cardiovascular: Chest Pain, Unremarkable Gastrointestinal: Unremarkable Genitourinary: Unremarkable Musculoskeletal: Unremarkable Integumentary: Unremarkable Neurological: Unremarkable Lymphatics: Unremarkable Physical Examination - Physical Exam General: Alert, In no apparent distress, Oriented x3, Cooperative HEENT: Atraumatic, PERRLA, Mucous membr. moist/pink, EOMI, Sclerae nonicteric Neck: Supple, 2+ carotid pulse no bruit, No LAD, Without JVD or thyroid abnormality Respiratory: Clear to auscultation bilaterally, Normal air movement Cardiovascular: No edema, Normal pulses, Regular rate/rhythm, Normal S1 S2 Capillary refill: <2 Seconds Gastrointestinal: Normal bowel sounds, Soft and benign, Non-distended, No tenderness Musculoskeletal: No clubbing, No swelling, No contractures, No tenderness Integumentary: No rashes, No breakdown, No significant lesion Neurological: Normal gait, Normal speech, Normal strength at 5/5 x4 extr, Normal tone, Normal affect Lymphatics: No axilla or inguinal lymphadenopathy - Studies Laboratory Data (last 24 hrs) 10/25/22 13:04: WBC 6.90, Hgb 14.4, Hct 43.8, Plt Count 255 10/25/22 13:04: Sodium 141, Potassium 3.7, BUN 14, Creatinine 0.80, Glucose 166 H Assessment and Plan - Plan -- NSTEMI. We will continue to trend troponin levels. Patient started on heparin drip. Cardiology consulted. Echocardiogram pending to assess cardiac structures and functions. Telemetry to monitor for any significant arrhythmia. Visual Merchandising Assistant plans for left heart cath in a.m. We will await further recommendation from carbonation equipment operator. --Acute pain. We will manage pain with current pain medication regimen. --History of CAD with stents\[place]. Continue aspirin, Plavix and statin. --HLD. Continue statin. --GERD. Continue Protonix. --Nicotine dependence. Patient placed on nicotine patch and counseled on tobacco cessation. -- CKD 2. Stable. We will continue to monitor renal functions. --History of cervical cancer. Status unknown. Continue supportive care. --Hypertension. Poorly controlled. Continue home medications and hydralazine as needed. --DVT prophylaxis with heparin drip. Discharge Plan: Home Plan to discharge in: 48 Hours - Advance Directives Does patient have a Living Will: No Does patient have a Durable POA for Healthcare: No - Code Status/Comfort Care Code Status Assessed: Yes Physician Review: Patient Assessed, Agree with Above Assessment and Plan Critical Care: No
[2022-10-25 17:00] LABS: Magnesium 2.1 mg/dL (1.6-2.4); Phosphorus 3.5 mg/dL (2.5-4.9); Thyroid Stimulating Hormone 2.87 uIU/mL (0.358-3.740)
[2022-10-25] MEDS ORDERED: HEPARIN/D5W 25,000 UNIT/500 ML BAG IV PRN (17:00)
[2022-10-25 17:52] LABS: SARS-CoV-2 Antigen Rapid Res Negative (Negative)
[2022-10-25 18:10] LABS: Protime INR 0.98
[2022-10-25] MEDS ORDERED: HEPARIN 5000 UNIT/ML 1 ML VIAL ONE (18:26)
[2022-10-25] MEDS ORDERED: HYDRALAZINE HCL 20 MG/ML VIAL IV PRN (20:14)
[2022-10-26 01:52] VITALS: BMI 27.8
[2022-10-26 02:40] LABS: Urine Blood Trace-intact (Negative); Urine Glucose Negative (Negative); Urine Protein Negative (Negative); Urine Specific Gravity 1.025 (1.005-1.030)
[2022-10-26 02:52] LABS: Absolute Lymphocytes (CBC) 2.8 K/uL (0.7-4.9); Hematocrit 39.8 % (36.0-45.0); Lymphocytes % 43.5 % (15.3-44.8); MCV 85.5 fL (80-100); MPV 9.4 fL (7.6-11.3); RBC Red Blood Cell Count 4.65 M/uL (3.86-4.86)
[2022-10-26] MEDS ORDERED: ACETAMINOPHEN 325 MG TABLET ONE (05:43)
[2022-10-26] MEDS: ASPIRIN 81 MG CHEWABLE TABLET PO SCH ×2 (09:00→10:32)
[2022-10-26] MEDS: NICOTINE 21 MG/PAT TD SCH (09:00)
[2022-10-26] MEDS ORDERED: ASPIRIN 81 MG CHEWABLE TABLET ONE (10:36)
[2022-10-26] MEDS ORDERED: HEPA 1000U/500MLS 2,000 UNIT/1,000 ML BAG IV ONE (10:45)
[2022-10-26] MEDS ORDERED: LIDOCAINE 1% 20 ML MDV ONE (10:46)
[2022-10-26] MEDS ORDERED: FENTANYL CITR 100 MCG/2 ML ONE (10:47)
[2022-10-26] MEDS ORDERED: MIDAZOLAM HCL 2 MG/2 ML INJ ONE (10:47)
[2022-10-26] MEDS ORDERED: HEPARIN 5000 UNIT/ML 1 ML VIAL ONE (10:47)
[2022-10-26] MEDS ORDERED: TICAGRELOR 90 MG TABLET PO ONE (10:48)
[2022-10-26] MEDS ORDERED: CLOPIDOGREL 75 MG TABLET ONE (10:48)
[2022-10-26] MEDS ORDERED: VERAPAMIL HCL 10 MG/4 ML VIAL IV ONE (10:48)
[2022-10-26] MEDS ORDERED: ASPIRIN 325 MG TAB ONE (10:48)
[2022-10-26] MEDS ORDERED: ATROPINE SULF 1 MG/10 ML SYR IV ONE (10:48)
[2022-10-26] MEDS ORDERED: HEPARIN 10,000 UNIT/10 ML VIAL IV ONE (10:48)
[2022-10-26] MEDS ORDERED: NA CHLORIDE 0.9% 0 ML ONE (11:04)
[2022-10-26] MEDS ORDERED: NOREPINEPHRINE BITARTRATE/D5W 0 MG/0 ML BAG IV ONE (12:07)
[2022-10-26] MEDS ORDERED: NA CHLORIDE 0.9% 500 ML ONE ×2 (12:07→12:50)
[2022-10-26] MEDS ORDERED: HEPA 1000U/500MLS 1,000 UNIT/500 ML BAG IV ONE (12:32)
--- NOTE | 2022-10-26 13:05 | EKG ---
Test Date: 2022-10-25 Test Time: 12:56:29 Senior Biostatistician/Group Leader: ALETHEA MEASUREMENT RESULTS: Intervals: Rate: 71 CT: 112 QRSD: 96 QT: 444 QTc: 482 Scalf: P: 19 CT: 112 QRS: 67 T: 107 INTERPRETIVE STATEMENTS: Normal sinus rhythm Marked T wave abnormality, consider anterolateral ischemia Prolonged QT Abnormal ECG Compared to ECG 10/05/2019 15:12:10 T-wave abnormality now present Possible ischemia now present Prolonged QT interval now present Left ventricular hypertrophy no longer present Electronically Signed On 10-26-22 13:03:19 CHIEF PSYCHOLOGIST by Felix Stephenson
--- NOTE | 2022-10-26 13:17 | CON ---
Date of Consultation: 10/26/2022 Reason For Consultation: Non-ST elevation myocardial infarction. History Of Present Illness: This is a 66-year-old female, history of coronary artery disease, status post LAD stent. She presented to my office yesterday with chest pain that is pressure like. Initia lly, she described it as an indigestion and then became pressure like, radiates to the left shoulder. At the time of evaluation in the office, she was chest pain free, but the pain apparently kept comi ng and going. Troponin was elevated. Then, she was sent to the hospital, diagnosed with non-STEMI a nd since last night, she has been having mild chest pain and she has been on heparin drip. Past Medical History: 1.Coronary artery disease. 2.Dyslipidemia. 3.Hypertension. Medications: Refer to reconciliation sheet for detailed list. Allergies: NO KNOWN DRUG ALLERGIES. Family History: No premature coronary artery disease or cancer. Social History: She does not smoke or drink. Does not use any drugs. Review of Systems: All systems reviewed and they were negative except what mentioned in HPI. Physical Examination: Vital Signs: Reviewed. Head and Neck: Pupils are equal, reactive to light. Intact eye movements. No JVD. No cervical lym phadenopathy. Neck is supple. Thyroid is not enlarged. Lungs: Clear to auscultation bilaterally. No rhonchi, wheezing, or crackles. No accessory muscle u se. Heart: Regular rate and rhythm. No extra sounds. Abdomen: Soft, nontender. Bowel sounds positive. No organomegaly. No masses or hernia. No rigidi ty or rebound. Extremities: No edema, clubbing, or cyanosis. Intact pulses. Skin: No rash. Neurologic: Alert, awake, oriented x3. No acute focal deficits appreciated. Investigations: Troponin peaked in the 700 range. BUN and creatinine normal. Assessment And Recommendations: 1.Non-ST elevation myocardial infarction. She is n.p.o. She will be taken to the cardiac catheteri zation laboratory for coronary angiogram and percutaneous coronary intervention as indicated. 2.Hypertension. Blood pressure is controlled. 3.Dyslipidemia. Continue statin. SR/MODL Voice ID: [id number] Report ID: [id number]
--- NOTE | 2022-10-26 13:26 | OP ---
Date of Procedure: 10/26/2022 Surgeon: TRISH MCCANN Procedures Performed: 1.Selective coronary angiogram. 2.Left heart catheterization. 3.PCI of critical proximal LAD stenosis, used a 3.5 x 20 mm Synergy drug-eluting stent. Indication: Non-ST elevation myocardial infarction. Access: Right radial artery 6-Guyanese closed with TR band. Due to spasm, we changed to right femoral artery 6-Guyanese closed with 6-Guyanese Angio-Seal. Complications: None. Bleeding: Less than 10 mL. Description Of Procedure: After risks, benefits, alternatives were explained, the patient agreed to the procedure and signed informed consent. The patient was brought into the cardiac catheterization laboratory, prepped and draped in the usual sterile fashion. Then, I accessed right radial artery us ing pediatric micropuncture kit, placed 6-Guyanese Slender sheath and took catheter into the aortic brittni t over a J-wire, engaged left main and right coronary artery, took standard views, and catheter was p ushed over the wire into the LV, measured LVEDP. Pullback did not record any gradient. Then, I gave systemic heparin to assure ACT level above 250 and 180 mg of Brilinta was given. Then, I tried to t salome 6-Guyanese EBU guide through the radial artery, but she had severe spasm and I obtained a right fem oral artery access single stick. Ultrasound guidance using a micropuncture kit, I placed a 6-Guyanese Cucumber sheath. Then, I took a 6-Guyanese EBU catheter over the wire into the aortic root and engaged left main and ACT level was above 250. I took short Run-Through wire into the LAD, placed it distal ly and the lesions were predilated using a 3.5 x 15 mm balloon. There was a lesion next to the stent about 60% to 70%, so I placed a 3.5 x 20 mm Synergy drug-eluting stent to cover that and cover the a blanca of restenoses and the stent. The patient tolerated the procedure very well. Postprocedure, resi dual stenosis was 0% and GANGA-3 flow. I removed the wire and the guide and the sheath, and placed a 6-Guyanese Angio-Seal for closure with good hemostasis and removed the radial sheath and placed TR band with good hemostasis. Findings: 1.Left main; large and normal. 2.LAD; there was a proximal LAD stent with diffuse iSR and then midportion was 99% stenosed. Next t o the stent, there was about 60% to 70% stenosis of the LAD, status post successful balloon angioplas ty and stent placement to cover both. The rest of the LAD is normal. Normal diagonal branches. 3.Left circumflex; moderate-size vessel with mid 30% stenosis. 4.RCA; large and dominant with mid 50% stenosis. 5.LVEDP was normal at 7 mmHg. The diagnostic catheter was pushed over the wire into the LV, measure d the LVEDP and pullback did not record any gradient. Conclusion: 1.Critical proximal LAD stenosis, status post successful PCI as above. 2.Moderate coronary artery disease elsewhere. 3.Normal LVEDP. Recommendation: Aspirin, Brilinta, high-dose statin. SR/MODL Voice ID: [id number] Report ID: [id number]
[2022-10-26] MEDS ORDERED: ONDANSETRON 4 MG/2 ML VIAL ONE (14:38)
--- NOTE | 2022-10-26 16:55 | P.PN ---
Subjective Date of Service: 10/26/22 Chief Complaint: Chest pain No new complaints. Physical Examination - Vital Signs Temperature: 98 F Blood Pressure: 165/81 Pulse: 70 Respirations: 16 Pulse Ox (%): 96 - Studies Laboratory Data (last 24 hrs) 10/25/22 13:04: Phosphorus 3.5, Magnesium 2.1 Assessment And Plan - Current Problems (Diagnosis) (1) Accelerated hypertension Current Visit: No Status: Acute (2) NSTEMI (non-ST elevated myocardial infarction) Current Visit: No Status: Acute - Plan Physical Exam General: Alert, In no apparent distress, Oriented x3, Cooperative Neck: Supple, no elevated JVD. Respiratory: Clear to auscultation bilaterally, Normal air movement Cardiovascular: No edema, Normal pulses, Regular rate/rhythm, Normal S1 S2 Gastrointestinal: Normal bowel sounds, Soft and benign, Non-distended, No tenderness Musculoskeletal: No clubbing, No swelling, No contractures, No tenderness Integumentary: No rashes, No breakdown, No significant lesion Neurological: Normal gait, Normal speech, Normal strength at 5/5 x4 extr, Normal tone, Normal affect Plan: Status post cardiac catheterization today Patient noted to have 99% occlusion in LAD which was stented. CAD medications-aspirin, Brilinta, high-dose statin. Patient is significantly bradycardic but blood pressure is elevated. We will start amlodipine. Beta-tejal per cardiology Cardiology to follow.
[2022-10-26] MEDS: TICAGRELOR 90 MG TABLET PO SCH ×2 (20:48→21:00)
[2022-10-26] MEDS: ATORVASTATIN 40 MG TAB PO SCH ×2 (20:48→21:00)
[2022-10-27 05:51] LABS: Potassium 4.4 mmol/L (3.5-5.1)
[2022-10-27 08:37] VITALS: BP 141/75; TEMP 97.4
--- NOTE | 2022-10-27 08:42 | P.DS ---
Admission Date: 10/26/22 Discharge Date: 10/27/22 Disposition: ROUTINE DISCHARGE Discharge Condition: FAIR Reason for Admission: Chest pain - Problems (1) Accelerated hypertension Status: Acute (2) NSTEMI (non-ST elevated myocardial infarction) Status: Acute Brief History of Present Illness: Patient is a 66-year-old female with a past medical history significant for hyperlipidemia, nicotine dependence, hypertension, cervical cancer, GERD, CAD with stent, [place] who presents with complaint of chest pain that has been ongoing intermittently for the past 1 month. Patient reported that chest pain was located in the substernal chest area and chest pain has been self resolving after a couple minutes. Patient reported that chest pain later became worse and lasted longer. Patient rated pain as 10/10 in severity and described pain as sharp\stabbing quality. Patient stated that chest pain radiates to her neck. Patient followed up with her special delivery carrier and was instructed to come to the ER due to elevated troponin. Her initial troponin was elevated to 623 in the ED. Patient was diagnosed with NSTEMI and hospitalized for further management. Hospital Course: Patient admitted to the medical floor and treated for NSTEMI with heparin drip. Troponin trended flat. She was seen and evaluated by cardiology who performed cardiac catheterization. Patient noted to have 99% occlusion in her LAD which was stented. Patient was started on aspirin and Brilinta and placed on high- dose statins as well as beta-blockers. She was monitored overnight with no issues. Patient is currently asymptomatic with stable vitals. She is deemed stable for discharge. Vital Signs/Physical Exam: Temp Pulse Resp BP Pulse Ox 97.4 F 60 16 141/75 H 100 10/27/22 08:00 10/27/22 08:00 10/27/22 08:00 10/27/22 08:00 10/27/22 08:00 General: Alert, In no apparent distress, Oriented x3 HEENT: Mucous membr. moist/pink Neck: JVD not distended Respiratory: Clear to auscultation bilaterally, Normal air movement Cardiovascular: No edema, Regular rate/rhythm, Normal S1 S2, No murmurs Gastrointestinal: Normal bowel sounds, Soft and benign, Non-distended, No tenderness Musculoskeletal: No swelling Integumentary: No rashes Neurological: Normal strength at 5/5 x4 extr Laboratory Data at Discharge: WBC 6.50 K/uL (4.3-10.9) 10/26/22 02:22 Hgb 13.1 g/dL (12.0-15.0) D 10/26/22 02:22 Hct 39.8 % (36.0-45.0) 10/26/22 02:22 Plt Count 214 K/uL (152-406) 10/26/22 02:22 PT 10.8 SECONDS (9.5-12.5) 10/25/22 17:47 INR 0.98 10/25/22 17:47 APTT 47.6 SECONDS (24.3-36.9) H 10/26/22 06:45 Sodium 138 mmol/L (136-145) 10/27/22 05:21 Potassium 4.4 mmol/L (3.5-5.1) 10/27/22 05:21 BUN 12 mg/dL (7-18) 10/27/22 05:21 Creatinine 0.75 mg/dL (0.55-1.02) 10/27/22 05:21 Glucose 112 mg/dL (74-106) H 10/27/22 05:21 Phosphorus 3.5 mg/dL (2.5-4.9) 10/25/22 13:04 Magnesium 2.1 mg/dL (1.6-2.4) 10/25/22 13:04 Triglycerides 128 mg/dL (<150) 10/26/22 02:22 Cholesterol 145 mg/dL (<200) 10/26/22 02:22 HDL Cholesterol 65 mg/dL (40-60) H 10/26/22 02:22 Cholesterol/HDL Ratio 2.23 10/26/22 02:22 Home Medications: Flonase 50MCG Nasal [employer] 2 puff IH DAILY PRN 10/17/11 Pantoprazole [Protonix Tab*] 40 mg PO DAILY 10/05/19 Aspirin [Aspirin EC 81 MG] 81 mg PO DAILY #30 tablet. 10/07/19 Metoprolol Tartrate [Lopressor*] 50 mg PO BID #60 tab 10/07/19 Simvastatin 40 mg PO DAILY 10/26/22 Valsartan [Diovan] 320 mg PO DAILY 10/26/22 Aspirin Chewable [Aspirin Chewable*] 81 mg PO DAILY #30 tab.chew 10/27/22 Ticagrelor [Brilinta*] 90 mg PO BID #60 tab 10/27/22 New Medications: Aspirin Chewable [Aspirin Chewable*] 81 mg PO DAILY #30 tab.chew Ticagrelor [Brilinta*] 90 mg PO BID #60 tab Diet: AHA Activity: Ad pearl Followup: Adolfo Hernandez MD [Primary Care Provider] - Felix Stephenson MD [ACTIVE - CAN ADMIT] - 1-2 Weeks Time spent managing pt's care (in minutes): 33
[2022-10-27] MEDS: NICOTINE 21 MG/PAT TD SCH (08:49)
[2022-10-27] MEDS: ASPIRIN 81 MG CHEWABLE TABLET PO SCH (08:49)
[2022-10-27] MEDS ORDERED: TICAGRELOR 90 MG TABLET PO SCH (09:00)
[2022-10-27 10:01] VITALS: O2SAT 97
[2022-10-27] MEDS ORDERED: ATORVASTATIN 40 MG TAB PO SCH (21:00)
== END 2022-10-27 10:13 | disposition home or self-care (01) | DRG 247 ==
LOC: ER 12:44 → ERHOLD 16:12 → 4TH 10-26 13:14 → OBSVTOIN 10-26 18:43
PROVIDERS: ADMIT Internal Medicine; ATTEND Internal Medicine
PROC: 027034Z Dilation of Coronary Artery, One Artery with Drug-eluting Intraluminal Device, Percutaneous Approach (ICD-10-PCS; principal; 2022-10-26)
PROC: 4A023N7 Measurement of Cardiac Sampling and Pressure, Left Heart, Percutaneous Approach (ICD-10-PCS; 2022-10-26)
PROC: B2111ZZ Fluoroscopy of Multiple Coronary Arteries using Low Osmolar Contrast (ICD-10-PCS; 2022-10-26)
DX: I21.4 Non-ST elevation (NSTEMI) myocardial infarction (principal); E78.5 Hyperlipidemia, unspecified; K21.9 Gastro-esophageal reflux disease without esophagitis; I12.9 Hypertensive chronic kidney disease with stage 1 through stage 4 chronic kidney disease, or unspecified chronic kidney disease; N18.2 Chronic kidney disease, stage 2 (mild); I25.10 Atherosclerotic heart disease of native coronary artery without angina pectoris; F17.200 Nicotine dependence, unspecified, uncomplicated; I25.2 Old myocardial infarction; Z95.5 Presence of coronary angioplasty implant and graft; Z88.8 Allergy status to other drugs, medicaments and biological substances; Z79.82 Long term (current) use of aspirin; Z85.41 Personal history of malignant neoplasm of cervix uteri; Z79.02 Long term (current) use of antithrombotics/antiplatelets; Z79.899 Other long term (current) drug therapy; Z90.710 Acquired absence of both cervix and uterus; Z20.822 Contact with and (suspected) exposure to COVID-19
CPT/HCPCS: 36415; 71045; 76937; 80048; 80061; 81003; 82947; 83036; 83735; 84100; 84439; 84443; 84484; 85025; 85347; 85610; 85730; 87811; 93005; 93458; 96374; 99285; C1725; C1760; C1893; C9600; G0269; J0461; J1644; J2001; J2250; J2405; J3010; J7040; Q9967

== ENCOUNTER 2023-01-27 22:01 | Emergency (ER) | payer OTHER ==
[2023-01-27] MEDS ORDERED: NA CHLORIDE 0.9% 500 ML ONE (22:29)
[2023-01-27 22:34] LABS: Absolute Lymphocytes (CBC) 2.1 K/uL (0.7-4.9); Hematocrit 37.1 % (36.0-45.0); Lymphocytes % 18.9 % (15.3-44.8); MCV 85.9 fL (80-100); MPV 8.5 fL (7.6-11.3); RBC Red Blood Cell Count 4.32 M/uL (3.86-4.86)
--- NOTE | 2023-01-27 22:38 | RAD REPORT ---
EXAM DESCRIPTION: [place] Single View01/27/2023 10:21 pm CLINICAL HISTORY: Syncope COMPARISON: October 2022 FINDINGS: The lungs appear clear of acute infiltrate. The heart is borderline enlarged IMPRESSION: No acute abnormalities displayed
[2023-01-27 22:57] LABS: Albumin 3.4 g/dL (3.4-5.0); Bilirubin Total 0.3 mg/dL (0.2-1.0); Potassium 3.4 mEq/L (3.5-5.1); Protein, Total 6.6 g/dL (6.4-8.2); Troponin High Sensitivity 4.7 pg/mL (<58.9)
--- NOTE | 2023-01-27 23:39 | EDPHYS ---
Physician Documentation [facility] Name: Denice Gastelum Age: 67 yrs Sex: Female : 1955 Arrival Date: 01/27/2023 Time: 22:01 Bed 3 Private MD: ED Physician Josh Ramesh HPI: 01/27 23:02 This 67 yrs old Female presents to ER via EMS with complaints of Syncope. bs3 23:02 59-year-old female history of CAD status post 2 stents presents with an episode of bs3 syncope she was drinking alcohol on her porch and passed out no presyncopal chest pain heart racing or anything else she denies any history of similar symptoms before she also takes beta-tejal she now notes that she is feeling better but per EMS they stood her up and she was markedly hypotensive and therefore brought her in. Historical: - Allergies: 22:15 Tetracyclines; ll3 - Home Meds: 22:15 metoprolol tartrate 50 mg Oral tablet 2 times per day [Active]; Diovan 320 mg Oral ll3 tablet daily [Active]; aspirin 81 mg Oral capsule daily [Active]; Flonase Nasal [Active]; Protonix 40 mg oral tablet, delayed release (enteric coated) daily [Active]; Crestor 10 mg oral tablet daily [Active]; Brilinta 90 mg oral tablet every 12 hours [Active]; - PSHx: 22:15 Total abdominal hysterectomy; ll3 - Immunization history:: Client reports receiving the 2nd dose of the Covid vaccine. - Social history:: Smoking status: Patient/guardian denies using tobacco. ROS: 23:02 Constitutional: Negative for fever, chills bs3 23:02 All other systems are negative. Exam: 23:02 Constitutional: This is a well developed, well nourished patient who is awake, alert, bs3 and in no acute distress. Head/Face: Normocephalic, atraumatic. Eyes: Pupils equal round and reactive to light, extra-ocular motions intact. Lids and lashes normal. ENT: mmm, no posterior phyarngeal erythema Neck: Trachea midline, no thyromegaly, no neck stiffness Chest/axilla: Normal chest wall appearance and motion. Nontender with no deformity. No lesions are appreciated. Cardiovascular: Regular rate and rhythm with a normal S1 and S2. symmetric pulses in upper extremities Respiratory: Lungs have equal breath sounds bilaterally, clear to auscultation, no respiratory distress Abdomen/GI: Soft, non-tender, no rebound or guarding Neuro: Awake and alert, GCS 15, oriented to person, place, time, and situation. Cranial nerves II-XII grossly intact. Motor strength 5/5 in all extremities. Sensory grossly intact. Psych: Awake, alert, with orientation to person, place and time. Behavior, mood, and affect are within normal limits. 23:02 EKG is normal sinus rhythm at 61 T wave inversions in anterior lateral leads which are improved from her prior EKG from 10/25/2022 QTc 434 Vital Signs: 22:11 BP 119 / 62; Pulse 61; Resp 14; Temp 97.4(O); Pulse Ox 99% on R/A; Weight 68.95 kg (R); ll3 Height 5 ft. 1 in. (R); Pain 0/10; 23:30 BP 128 / 69; Pulse 67; Resp 20 S; Pulse Ox 98% on R/A; as6 22:11 Body Mass Index 28.72 (68.95 kg, 154.94 cm) ll3 22:11 Pain Scale: Adult ll3 MDM: 23:02 Data reviewed: vital signs, nurses notes. ED course: Patient with episode of syncope bs3 there is a wide differential including cardiac etiology given her history of CAD however given her orthostatic changes in her alcohol use I think this is multifactorial likely secondary to alcohol and her beta-tejal we will hydrate we will check labs and reassess Her work-up was nondiagnostic will see how patient is feeling we will have shared decision-making conversation regarding risks and benefits of admission for telemetry or outpatient follow-up. 23:38 ED course: Patient reassessed she is feeling much better she ambulated without any bs3 recurrent symptoms discussed risks and benefits of going home will discharge home. 23:38 Patient medically screened. bs3 01/27 22:09 Order name: CBC with Diff; Complete Time: 23:01 bs3 01/27 22:09 Order name: Comprehensive Metabolic Panel; Complete Time: 23:01 bs3 01/27 22:09 Order name: Troponin High Sensitivity; Complete Time: 23: bs3 01/27 22:09 Order name: Ethanol; Complete Time: 23: bs3 01/27 22:09 Order name: Chest Single View XRAY; Complete Time: 23:01 bs3 01/27 22:09 Order name: EKG - Nurse/Tech; Complete Time: 22:19 bs3 Administered Medications: 22:28 Drug: NS 0.9% IV 500 ml Route: IV; Rate: 1 bolus; Site: left antecubital; as6 01/28 00:11 Follow up: Response: No adverse reaction; IV Status: Completed infusion; IV Intake: ll3 500ml Disposition Summary: 01/27/23 23:38 Discharge Ordered Location: Home bs3 Problem: new bs3 Symptoms: have improved bs3 Condition: Stable bs3 Diagnosis - Syncope Near bs3 Followup: bs3 - With: Private Physician - When: 2 - 3 days - Reason: Re-evaluation by your physician Discharge Instructions: - Discharge Summary Sheet bs3 - Syncope bs3 Forms: - Medication Reconciliation Form bs3 - Thank You Letter bs3 - Antibiotic Education bs3 - Prescription Opioid Use bs3 Signatures: Dispatcher [employer] Danny Hatfield RN RN as6 Kemar Diez RN RN ll3 Josh Ramesh MD MD bs3
--- NOTE | 2023-01-27 23:39 | ER ---
Nurse's Notes [facility] Name: Denice Gastelum Age: 67 yrs Sex: Female : 1955 Arrival Date: 01/27/2023 Time: 22:01 Bed 3 Private MD: Diagnosis: Syncope Near Presentation: 01/27 22:11 Chief complaint: EMS states: Toned out for syncope, pt states she was sitting outside 3 in a lawn chair when she started to feel dizzy and passed out, EMS reports low BP upon arrival. Coronavirus screen: Vaccine status: Patient reports receiving the 2nd dose of the covid vaccine. At this time, the client does not indicate any symptoms associated with coronavirus-19. Ebola Screen: No symptoms or risks identified at this time. Initial Sepsis Screen: Does the patient meet any 2 criteria? No. Patient's initial sepsis screen is negative. Does the patient have a suspected source of infection? No. Patient's initial sepsis screen is negative. Risk Assessment: Do you want to hurt yourself or someone else? Patient reports no desire to harm self or others. Onset of symptoms was January 27, 2023. Care prior to arrival: Medication(s) given: Normal saline infusion, 750 ml IV initiated. 18 GA, in the left antecubital area. 22:11 Method Of Arrival: EMS: [facility] 22:11 Acuity: ESTEPHANIA 3 ll3 Triage Assessment: 22:15 General: Appears comfortable, Behavior is calm, cooperative. Pain: Denies pain. Neuro: ll3 Level of Consciousness is awake, alert, obeys commands, Oriented to person, place, time, situation, Reports dizziness, a syncopal episode. Cardiovascular: Patient's skin is warm and dry. Rhythm is sinus rhythm. Respiratory: Respiratory effort is even, unlabored, Respiratory pattern is regular, symmetrical. Derm: Skin is pink, warm \T\ dry. Historical: - Allergies: 22:15 Tetracyclines; ll3 - Home Meds: 22:15 metoprolol tartrate 50 mg Oral tablet 2 times per day [Active]; Diovan 320 mg Oral ll3 tablet daily [Active]; aspirin 81 mg Oral capsule daily [Active]; Flonase Nasal [Active]; Protonix 40 mg oral tablet, delayed release (enteric coated) daily [Active]; Crestor 10 mg oral tablet daily [Active]; Brilinta 90 mg oral tablet every 12 hours [Active]; - PSHx: 22:15 Total abdominal hysterectomy; ll3 - Immunization history:: Client reports receiving the 2nd dose of the Covid vaccine. - Social history:: Smoking status: Patient/guardian denies using tobacco. Screenin:28 [facility] ED Fall Risk Assessment (Adult) Intoxicated or Sedated Yes (3 pts) Score/Fall as6 Risk Level 3 or more points = High Risk. Abuse screen: Denies threats or abuse. Denies injuries from another. Nutritional screening: No deficits noted. Tuberculosis screening: No symptoms or risk factors identified. Assessment: 22:15 General: See triage assessment. ll3 Vital Signs: 22:11 BP 119 / 62; Pulse 61; Resp 14; Temp 97.4(O); Pulse Ox 99% on R/A; Weight 68.95 kg (R); ll3 Height 5 ft. 1 in. (R); Pain 0/10; 23:30 BP 128 / 69; Pulse 67; Resp 20 S; Pulse Ox 98% on R/A; as6 22:11 Body Mass Index 28.72 (68.95 kg, 154.94 cm) ll3 22:11 Pain Scale: Adult ll3 ED Course: 22:03 Patient arrived in ED. la1 22:07 Josh Ramesh MD is Attending Physician. bs3 22:15 Triage completed. ll3 22:15 Arm band placed on Patient placed in an exam room, on a stretcher, on rhic systems safety engineer, ll3 on pulse oximetry. EKG completed in triage. Results shown to MD. 22:23 Chest Single View XRAY In Process Unspecified. EDMS 22:28 Maintain EMS IV. Dressing intact. Good blood return noted. Site clean \T\ dry. Gauge \T\ as 6 site: 18G LAC. 22:29 Placed in gown. Bed in low position. Call light in reach. Side rails up X2. Client as6 placed on continuous cardiac and pulse oximetry monitoring. NIBP monitoring applied. Warm blanket given. 06 00:11 No provider procedures requiring assistance completed. IV discontinued, intact, ll3 bleeding controlled, No redness/swelling at site. Pressure dressing applied. Administered Medications: 01/27 22:28 Drug: NS 0.9% IV 500 ml Route: IV; Rate: 1 bolus; Site: left antecubital; as6 01/28 00:11 Follow up: Response: No adverse reaction; IV Status: Completed infusion; IV Intake: ll3 500ml Medication: 00:12 VIS not applicable for this client. ll3 Intake: 00:11 IV: 500ml; Total: 500ml. ll3 Outcome: 01/27 23:38 Discharge ordered by . bs3 01/28 00:11 Discharged to home ambulatory, with friend. ll3 Condition: stable Discharge instructions given to patient, friend, Instructed on discharge instructions, follow up and referral plans. Demonstrated understanding of instructions, follow-up care. 00:12 Patient left the ED. ll3 Signatures: Dispatcher [employer] EDMS Flip Thompson, FAMILY LAW ATTORNEY-C FAMILY LAW ATTORNEY-Cla1 Danny Heck RN RN as6 Kemar Diez RN RN ll3 Josh Ramesh MD MD bs3 Corrections: (The following items were deleted from the chart) 01/27 22:22 22:22 General: See triage assessment. ll3 ll3
[2023-01-28 00:30] VITALS: TEMP 97.4
[2023-01-28 00:32] VITALS: BP 128/69; O2SAT 98
--- NOTE | 2023-01-30 12:09 | EKG ---
Test Date: 2023-01-27 Test Time: 22:12:22 Dairy Chemist: MEASUREMENT RESULTS: Intervals: Rate: 61 SC: 146 QRSD: 86 QT: 432 QTc: 434 [place]: P: 72 SC: 146 QRS: 70 T: 104 INTERPRETIVE STATEMENTS: Normal sinus rhythm ST & T wave abnormality, consider anterolateral ischemia Abnormal ECG Compared to ECG 10/25/2022 12:56:29 ST (T wave) deviation now present T-wave abnormality no longer present Prolonged QT interval no longer present Possible ischemia still present Electronically Signed On 01-30-23 12:01:20 CDT by Wilner Huertas
== END 2023-01-28 00:12 | disposition home or self-care (01) ==
LOC: ER 22:01
DX: R55 Syncope and collapse (principal); Z88.1 Allergy status to other antibiotic agents; Z95.818 Presence of other cardiac implants and grafts
CPT/HCPCS: 96361; 93005 ×2; 85025; 36415; 84484; 80053; 71045; 96360; 99284; 82077; J7040

== ENCOUNTER 2024-08-08 09:55 | Observation (INO) | payer BC, OTHER ==
[2024-08-07 13:52] LABS: Absolute Basophils 0.1 K/uL (0-0.5); Absolute Eosinophils 0.2 K/uL (0-0.5); Absolute Lymphocytes (CBC) 2.3 K/uL (0.7-4.9); Absolute Monocytes 0.5 K/uL (0.1-1.3); Absolute Neutrophil 3.5 K/uL (1.8-8.0); Basophils % 1.4 % (0-1.3); Eosinophils % 2.6 % (0-4.4); Hematocrit 43.6 % (36.0-45.0); Hemoglobin 14.1 g/dL (12.0-15.0); MCH 28.4 pg (27.0-35.0); MCHC 32.2 g/dL (32.0-36.0); MCV 88.1 fL (80-100); MPV 9.3 fL (7.6-11.3); Monocytes % 7.8 % (3.3-12.3); Neutrophils % 53.2 % (41.7-73.7); Nucleated Red Blood Cells % 0.1 % (0-0); Platelets 293 thou/uL (152-406); RBC Red Blood Cell Count 4.95 M/uL (3.86-4.86); Red Cell Distribution Width 13.4 % (12.1-15.2)
[2024-08-07 13:56] LABS: Specific Gravity 1.027 (1.005-1.030); Sqamous Epithelial <5 /HPF (None Seen); Urine Bacteria <20 /HPF (<20); Urine Bilirubin NEGATIVE (Negative); Urine Blood 2+ (Negative); Urine Clarity Extremely Turbid (Clear); Urine Color Yellow (Yellow); Urine Culture Reflex Order NOT NEEDED; Urine Glucose NEGATIVE (Negative); Urine Ketones NEGATIVE (Negative); Urine Microscopic Reflex YN ORDER UMIC; Urine Mucus Slight /HPF (None Seen); Urine Nitrite NEGATIVE (Negative); Urine Protein NEGATIVE (Negative); Urine Urobilinogen Normal (Normal); Urine WBC <5 /HPF (<5); Urine pH 5.5 (5.0-7.0)
[2024-08-07 13:59] LABS: PT Prothrombin Time 10.7 SECONDS (9.4-12.5); PTT, Activated Partial Thromb 31.5 SECONDS (24.3-36.9); Protime INR 0.95
[2024-08-07 14:04] LABS: Anion Gap 5.5 mEq/L (5.0-15.0); Potassium 4.5 mEq/L (3.5-5.1)
[2024-08-08] MEDS ORDERED: LIDOCAINE 1% MPF 5 ML VIAL ONE (10:09)
[2024-08-08] MEDS ORDERED: ROCURONIUM 50 MG/5 ML VIAL IV ONE (10:09)
[2024-08-08] MEDS ORDERED: ONDANSETRON 4 MG/2 ML VIAL ONE (10:09)
[2024-08-08] MEDS ORDERED: dexAMETHasone 10 MG/ML VIAL ONE (10:09)
[2024-08-08] MEDS ORDERED: MIDAZOLAM HCL 2 MG/2 ML INJ ONE (10:10)
[2024-08-08] MEDS ORDERED: propofoL 200 MG/20 ML VIAL IV ONE (10:10)
[2024-08-08] MEDS ORDERED: KETAMINE HCL IN 0.9 % NACL 50 MG/5 ML SYRINGE IV ONE (10:10)
[2024-08-08] MEDS ORDERED: FENTANYL CITR 100 MCG/2 ML ONE (10:10)
[2024-08-08] MEDS ORDERED: FENTANYL CITR 250 MCG/5 ML ONE (10:13)
[2024-08-08] MEDS: Ringers Lactate 1,000 ML IV ONE ×2 (10:25→14:05)
[2024-08-08] MEDS ORDERED: BACITRACIN OINTMENT 14 GM TUBE TOP ONE (11:44)
[2024-08-08] MEDS ORDERED: NA CHLORIDE 0.9% 100 ML ONE (11:49)
[2024-08-08] MEDS ORDERED: EPHEDRINE SULF 50 MG/ML VIAL ONE (11:59)
[2024-08-08] MEDS: CEFAZOLIN SODIUM 2 GM/VIAL ONE (12:20)
[2024-08-08] MEDS: VASOPRESSIN 20 UNIT/ML VIAL ONE (12:25)
[2024-08-08] MEDS: CEFAZOLIN SODIUM 1 GM/VIAL ONE (12:25)
[2024-08-08] MEDS ORDERED: Ringers Lactate 1,000 ML IV SCH (15:13)
[2024-08-08] MEDS: ONDANSETRON 4 MG/2 ML VIAL ONE (15:16)
[2024-08-08] MEDS: PROMETHAZINE INJ 25 MG/ML AMP IV PRN (15:26)
[2024-08-08 16:12] VITALS: BMI 29.5
[2024-08-08] MEDS ORDERED: PNEUMOCOCCAL VACCINE 0.5 ML IMVAC ONE (17:00)
[2024-08-08] MEDS: MORPHINE 2 MG/ML SYR IV PRN (17:37)
[2024-08-08] MEDS: ACETAMINOPHEN 500 MG TAB PO PRN (20:27)
[2024-08-08 21:22] VITALS: O2SAT 100
[2024-08-09 12:11] VITALS: BP 133/70; TEMP 97.5
--- NOTE | 2024-08-09 15:46 | EKG ---
Test Date: 2024-08-07 Test Time: 14:22:54 Review Specialist: JULIETA MEASUREMENT RESULTS: Intervals: Rate: 63 WV: 146 QRSD: 84 QT: 364 QTc: 372 [place]: P: 53 WV: 146 QRS: 65 T: 38 INTERPRETIVE STATEMENTS: Normal sinus rhythm Nonspecific T wave abnormality Abnormal ECG Compared to ECG 01/27/2023 22:12:22 T-wave abnormality now present ST (T wave) deviation no longer present Possible ischemia no longer present Electronically Signed On 08-09-24 15:44:12 TANK TRUCK ENGINE MECHANIC by Ector Bai
--- NOTE | 2024-08-10 19:14 | OP ---
Surgeon: Elsa Zaldivar MD Carrier Associate: Giuliana Richrad. Preoperative Diagnoses: Stage III posterior wall defect, vault prolapse, stress urinary incontinence , and largely posterior enterocele, perineal body defect. Postoperative Diagnoses: Stage III posterior wall defect, posterior enterocele, vault prolapse, yolanda anand body defect, stress urinary incontinence. Procedures Performed: 1.Bilateral sacrospinous ligament fixation, colpopexy for vault suspension. 2.Posterior vaginal wall repair and enterocele repair with biologic graft augmentation of the exceptional student education teacher ior wall, perineorrhaphy after perineal body reconstruction and a mid urethral sling transobturator a pproach (TVT-O), cystoscopy. Anesthesia: General. Estimated Blood Loss: 100. Urine Output: 100. Fluids: 1300. Specimens: No specimens. Complications: No complications. Drains: Ospina catheter and vaginal packing. Findings: Pop-Q -3, -2, -6, 4, thin 9, 0, +2 and bilateral fixation was done with Prolene sutures to the sacrospinous ligaments. Then the biologic graft was shaped into a trapezoid routine with an int erspinous length of the graft was 8 cm. The vertical limbs of the graft were 6 cm and the width of t he graft in the distal portion was 3 cm. The enterocele was repaired in the proximal half of the pos terior wall. Distally, there was a significant attachment and tear of the perineal body followed by detachment of the posterior fascia from the posterior wall especially on the right side greater than the left. Cystoscopy was performed. There was no foreign body material or sutures or trauma in the bladder. B oth ureteric orifices had strong jets of urine from them. Indication: The patient is a 68-year-old with the posterior wall defect, defecatory dysfunction from this bulge symptoms and SONAM, mixed incontinence. She was evaluated with ultrasound. No pelvic mass es were noted. Then, she was evaluated with cystoscopy. No bladder masses or stones or diverticula were present and voiding function was evaluated with a voiding log as well as urodynamic study. We w ere able to offer her different options including pessary vaginal surgery or an abdominal surgery for the vaginal vault and posterior wall suspension. After we discussed about all the different options , the patient wanted to proceed with a vaginal repair. She understood the biologic graft augmentatio n. Then, she also has stress incontinence and therefore planned to implant a sling for prevention of SONAM. Her overactive bladder will be treated along the pathway and we will discuss second and third line therapies as we go down the pathway. She had history of coronary stents placed in 2014 and 2022 after that. Medical clearance was jody stuart from Dr. Stephenson and aspirin held for 5 days preop. Description Of Procedure: She was consented and brought to the hospital. She is a nonsmoker, at thi s time, but with history of smoking. All the benefits and risks of the surgery were reviewed again a nd she was consented and taken back to the OR and questions and answers were done to their satisfacti on in the preoperative area. She was placed in supine fashion on the operating table. General anesthesia was given. She was plac ed in a dorsal lithotomy position in Bucky stirrups. Lower abdomen, medial thighs, vulva, vagina, an d perineum were prepped and draped in a sterile fashion. Ospina was placed to drain the bladder and r etracted superiorly. After clamping it, a self-retaining Horse Shoe retractor was fixed in place and 4 needles were used to retract the vagina. After evaluation under anesthesia and Pop-Q was determined as above, dictated in the findings. It wa s clear that posterior repair along with wall suspension were the first procedures before which we ev aluated the bladder. A roxana-shaped incision was made in the posterior wall all the way extending into the perineum. Af ter injecting with dilute vasopressin 30 mL, scalpel was used to make the incision. Then, the vagina l epithelium and the perineal epithelium in this roxana-shaped incision were removed and discarded. Connective tissue was dissected away from all the way down to the lateral wall to the distal perinea l body remnant and proximally. Once both lateral aspects were dissected till I could see the deficit on the left side more than the right, perineal body structures were also exposed after dissecting wi th a 15 blade. A posterior enterocele was then dissected off the vaginal epithelium all the way up to the apex. Onc e this was reached, then full dissection was done in the entire posterior vaginal wall. After going towards the sacrospinous ligament, the perirectal space was dissected. The rectum was sw ept off from the ligament and the ligament was cleaned up by sweeping posterior and inferior to the i schial spine. Same dissection was performed on the right side as well. Once this was done, Capio de vice was taken. Prolene suture was placed in the mid ligament on the front of the ligament without e ncircling it. Once this was done on both sides, then Prolene sutures were held on clamps. Then, thr ee 2-0 PDS sutures were taken and placed, one in the center, and one on each side where the distal ut erosacral would be attached to the cuff. These sutures were held on clamps. Then graft was fashione d 8 x 1.5 x 6 cm and the graft was soaked according to package directions and brought into the field. Then the 3 central PDS sutures were used to tie the graft and stabilize it. Then the lateral sacro spinous sutures were hooked with a jaya stitch and then they were tied down without an air knot on both sides. Rectal exam was negative. Then, distal portion of the graft was secured on to the poste rior vaginal wall. The posterior vaginal wall was first repaired from [id number]-km-nrai and distal posterior wall was repaire d as well. Then 2-0 Vicryl was again used to close the perineal body structures, the deep and superf icial transverse perinei and the sphincter superficially. Once this was closed, then the distal post erior wall was attached with the interrupted PDS and Vicryl sutures were reattached to the perineal b ivan. Once this was done, the graft was brought and sutured with 2-[address] in the distal portion and one in general lateral aspects to anchor the graft down. The vaginal epithelium was trimmed further knot and then the entire incision was closed. Once the posterior enterocele was dissected after opening the distal rectovaginal septum, dissection carried towards the vaginal vault and laterally the entire enterocele was dissected and laid out and pursestring suture with 3-0 Monocryl was used to reduce this large 3 cm defect and once this was redu toya, then the graft was placed. Once the entire graft was secured, the vaginal epithelium was trimmed. It was closed with the help o f the sacrospinous sutures were tied down and lateral sutures with PDS were placed to secure the khari t to the paravaginal tissues in the pararectal sulcus and then vaginal epithelium closed with continu ous running 2-0 Vicryl. Perineal body closed with subcutaneous and subcuticular 3-0 Vicryl and then closed the perineal incision with the same. Rectal exam was negative at the level of the perineal purnima dy, posterior vaginal wall repair and with sacrospinous sutures. Midurethral sling: The mid urethral area was picked up with 2 Allis clamps, injected with dilute vas opressin 10 mL, midline as well as on both sides, 1.1 cm incision in midurethral area. The anterior vaginal wall was not prolapsed at all after the repair was complete. So the incision carried down un derneath the fascia and towards the ipsilateral obturator space at a 45-degree angle to the horizonta l and vertical planes. Dissection carried after perforating through the obturator fascia and opening up the tract to leave a graft. Similar dissection performed on the left side as well, first on the right and then on the left. The wing guide was placed along the dissected tract and the needle loade d was passed through the obturator fascia and guide was removed and then the exit point of the needle was 2 cm lateral to the groin fold above the level of the internal meatus avoiding the adductor long us tendon. Similar pass on the opposite side as well. Plastic dilators were pulled out and cut. Pl astic sheath in the mesh was held with the Laly. Then once the mesh was tensioned with the Metbenito um scissors, the sheaths were pulled out, mesh cut flush with the skin. Skin closed with Dermabond a nd after irrigating the mesh in the vaginal area. Vaginal epithelium was closed in full thickness wi th continuous running 0 Vicryl suture. Ospina was removed. Cystoscopy was performed with a 17-Kosovan sheath, 30-degree lens, normal saline. Excellent jets of urine from both ureteric orifices. No juan david dence of any trauma or foreign body. Bladder was checked on the trigone area above the trigone and d own on the lateral wall closely. The bladder was drained. Ospina was replaced. Vaginal packing was placed and the patient was recovered from anesthesia and taken to PACU in stable condition and her pa rtner was debriefed on her findings at the end of her procedure. MAX/CLARY Voice ID: [id number] Report ID: [id number]
== END 2024-08-09 15:39 | disposition home or self-care (01) ==
LOC: OR 09:55 → 2ND 15:59
PROVIDERS: ADMIT Obstetrics & Gynecology; ATTEND Obstetrics & Gynecology
PROC: 0JUC0JZ Supplement of Pelvic Region Subcutaneous Tissue and Fascia with Synthetic Substitute, Open Approach (ICD-10-PCS; 2024-08-08)
PROC: 0JQC0ZZ Repair Pelvic Region Subcutaneous Tissue and Fascia, Open Approach (ICD-10-PCS; 2024-08-08)
PROC: 0TSD0ZZ Reposition Urethra, Open Approach (ICD-10-PCS; 2024-08-08)
PROC: 0USG7ZZ Reposition Vagina, Via Natural or Artificial Opening (ICD-10-PCS; principal; 2024-08-08 12:30)
DX: N81.6 Rectocele (principal); N95.2 Postmenopausal atrophic vaginitis; K59.02 Outlet dysfunction constipation; N39.3 Stress incontinence (female) (male); Z95.5 Presence of coronary angioplasty implant and graft; Z87.891 Personal history of nicotine dependence; N32.81 Overactive bladder; N81.81 Perineocele
CPT/HCPCS: 93005; 85025; 81001; 80048; 36415; 86900; 86850; 85610; 86901; 85730; 57282; 57250; 57267; 57288; J2550; J2704; J2003; J2250; J3010; J1100; J2270 ×2; J2405 ×2; J7120 ×2; J0690; G0379; G0378 ×2